=== PATIENT | male | born 1950 | race Caucasian/White ===

== ENCOUNTER → 2016-11-21 | Outpatient (CLI) | payer MEDICARE, OTHER ==
[~2016-11-21] MED LIST: AMLO5TAB2 PO; ASPI-482 PO; ESOM20CA PO; FEXO180T81 PO; METO50TA2 PO; NITR0.4T22 SL; SIMV40TA3 PO
--- NOTE | 2016-11-21 10:27 | PAIN ---
DATE OF SERVICE: 11/21/2016 INITIAL PAIN CLINIC CONSULTATION DATE OF SERVICE: 11/21/2016 CHIEF COMPLAINT: Low back and left lower extremity pain. HISTORY OF PRESENT ILLNESS: This is a 66-year-old male who presents with history of pain, low back and left leg for just over a year. The patient reports it occurred fairly suddenly and was not the result of any injury or action he is aware of, gradually increased over the last year or so with pain in the low back, across the low back, mostly on the left side radiating to left posterior gluteus, posterolateral thigh, lateral anterior thigh, posterior calf, posterior foot, anterior and lateral lower leg to the top of the foot as well as the lateral toes and the great toe. The patient reports a sharp shooting, can be aching, burning, cramping and stabbing as well as dull. The patient reports it is better with lying down, does not awaken him from sleep at night. Reports it does not affect his bowel or bladder control or his ability to walk, although he is limping to some extent. He is not using any assistive devices to ambulate. The patient reports it is worse when he is on his feet for more than about 30 minutes, but initially walking would actually decrease the pain. It is worse with sitting for prolonged period, especially riding in a car exacerbates the pain significantly. Again lying down can relieve it almost completely. The patient has had some chiropractic treatment, but no actual formal physical therapies or other modalities for the pain currently. The patient reports that the chiropractor did help to some extent and keeps the muscles loose and hence the low back and hips, but it comes back about 8-10 hours later after each treatment. The patient reports no loss of motor function, but significant fatigability with left lower extremity when he is ambulating over the right. The patient's disability rating from 0-10, 10 being the worst, is a 4 with family and home responsibilities and social activities, 6 with recreation and 0 in all other categories. PAST MEDICAL HISTORY: Significant for hypertension, hearing loss, skin cancers, cigarette smoking, quit 15 years ago, hypercholesterolemia, previous myocardial infarction and angioplasty, arthritis. PREVIOUS SURGERY: Include cataract extraction in 1999, hemorrhoidectomy 1997. CURRENT MEDICATIONS: Include nitroglycerin p.r.n., simvastatin, amlodipine, Yani, daily baby aspirin, Nexium, metoprolol. ALLERGIES: The patient has no known drug allergies. FAMILY HISTORY: Significant for heart disease and high blood pressure. SOCIAL HISTORY: The patient quit smoking many years ago. Does not drink alcohol. He is single. Lives on his own, has recently relocated from [facility] and is currently retired. REVIEW OF SYSTEMS: The patient's review of systems is positive for those items mentioned in history of present illness. All systems reviewed and otherwise negative. It is complete, full and well documented on the patient's chart. PHYSICAL EXAMINATION: VITAL SIGNS: The patient's blood pressure 139/58, pulse is 61, respirations 18, temperature 98.1 degrees Fahrenheit, height is 5 feet 7 inches, weighs 184 pounds. GENERAL: The patient is awake, alert, oriented, appropriate, very pleasant demeanor. HEENT: Head shows normocephalic, atraumatic. Extraocular movements are intact and symmetrical. Oral cavity shows mucous membranes moist and pink. Dentition is intact. NECK: Shows anterior throat supple without palpable lymphadenopathy noted. Swallow reflex is symmetrical. CHEST: Shows normal on inspection. Breath sounds are clear to auscultation bilaterally. HEART: Shows S1 and S2 clear. No murmurs auscultated. ABDOMEN: Soft, nontender, nondistended. No palpable organomegaly is noted. No rebound or guarding demonstrated. BACK: The patient's back shows spine grossly midline, normal-appearing cervical lordotic curvature, thoracic kyphotic curvature, and lumbar lordotic curvature. No previous bruises, lesions, rashes or scars are noted. Lumbar paraspinous musculature shows symmetrical with inspection, the lumbar distribution, on palpation shows some moderate tenderness, more on the left than the right in the low lumbar distribution, but symmetrical without evidence of atrophy or hypertrophy. Right side is only very mildly tender with deep palpation. No tenderness over the spinous processes. No tenderness over the sacrum or sacroiliac regions. The patient shows full rotational motion of lumbar spine, both laterally greater than 10 degrees right and left as well as extension greater than 10 degrees, forward flexion at 45 degrees without significant pain reported. LOWER EXTREMITIES: Showed deep tendon reflexes at 2+ in the patellar, 1+ tendo-calcaneus tendons are equal. Motor exam is strong with 5/5 dorsiflexion, extension, quadriceps and hamstring flexion and symmetrical as well. The patient's peripheral pulses are 1+ posterior tibial and dorsalis pedis pulses. No peripheral edema is noted. No clubbing, no cyanosis. Lower extremities are warm and dry to touch, equal in color and appearance. Straight leg raise noted to be positive on the left at about 40 degrees, which is decreased with knee flexion, but not completely relieved with pain in the lateral posterior calf and thigh on the left side. Right side is negative. Gaenslen's and Jesús's maneuvers are negative bilaterally as well. The patient is able to stand, stand on his toes without significant difficulty or loss of balance. He is able to walk with a normal appearing gait for short distance in the office, seems to favor the left lower extremity slightly, with a slight limp in his walk, but only very minimal. No assistive device canes or walkers required to ambulate. IMPRESSION: 1. This is a 66-year-old male with just over 1 year history of low back and left lower extremity pain in a radicular fashion. 2. Plain films of lumbar spine showing severe lumbar spondylosis at L5-S1 with advanced degenerative disk disease and disk space narrowing. 3. Hypertension. 4. Hearing loss. 5. Hypercholesterolemia. PLAN: Options were discussed with the patient including conservative medical management, physical therapy, interventional techniques and he is interested in interventional techniques. However, he does have an MRI already scheduled for 11/24/2016 and he would like to have this done first prior to committing to any interventional techniques. We discussed a lumbar epidural steroid injection using description as well as anatomical models to describe the procedure and the patient would like to see the MRI scan results first as this is already scheduled. We will wait until these are available and have the patient return once the MRI scan is read and we will discuss options at that time. The patient was encouraged to maintain exercise and stretching as well as walking activity and will return as scheduled. YUMIKO CANELA MD DR: ISAIAH/carl JOB#: [id number] / [id number]
== END | disposition home or self-care (01) ==
LOC: PNCL 07:42
PROVIDERS: ATTEND Anesthesiology
DX: M47.896 Other spondylosis, lumbar region (principal); M51.37 Other intervertebral disc degeneration, lumbosacral region; I10 Essential (primary) hypertension; E78.00 Pure hypercholesterolemia, unspecified; Z85.828 Personal history of other malignant neoplasm of skin; Z87.891 Personal history of nicotine dependence
CPT/HCPCS: G0463

== ENCOUNTER → 2016-11-24 | Outpatient (CLI) | payer MEDICARE, OTHER ==
--- NOTE | 2016-11-24 14:55 | KCIC ---
MR of the sacrum HISTORY: Low back pain extending into the left leg for one year. TECHNIQUE: Routine multiplanar sequences are obtained through the sacrum. FINDINGS: No evidence of bone lesion or acute fracture. No acute bone marrow edema. The neural foramina are patent. No abnormal soft tissue signal around the sacrum. The sacroiliac joints are intact bilaterally. Degenerative spondylosis at the partially visualized lower spine, and disc herniation at the lumbosacral junction, is partially seen, and will be fully evaluated on the separate MR lumbar spine performed today which will be interpreted on a separate report. Incidentally noted is diverticulosis of the visualized colon. IMPRESSION: 1. No acute abnormality identified at the sacrum or sacroiliac joints. 2. Disc herniation at the lumbosacral junction, referred to the separate MRI lumbar spine exam for that report. Electronically signed by: Angelo Maravilla MD (11/24/2016 2:51 PM) [id number]
--- NOTE | 2016-11-24 15:22 | KCIC ---
MRI of the lumbar spine without contrast 11/24/2016 CLINICAL HISTORY: Low back pain which radiates down the left leg for one year. TECHNIQUE: Unenhanced T1-weighted and T2-weighted sagittal and axial and inversion recovery sagittal images of the lumbar spine were obtained. FINDINGS: Mild S-shaped curvature of the thoracolumbar spine is seen. Degenerative signal changes are seen involving all of the disks of the lower thoracic and throughout the lumbar spine. Degenerative signal changes are seen within the marrow surrounding these discs. Loss of height of the L3-4 and L5-S1 discs is noted. An old appearing compression deformity of the superior endplate of the T11 vertebral body is seen. This vertebral body has lost approximately 30 percent of its normal height, centrally. No retropulsion of bone fragments into the central spinal canal is seen. There is no MRI evidence of an acute compression fracture involving the lumbar vertebrae. The conus medullaris is normal morphology, position, and signal characteristics. A rounded structure is seen projecting laterally and inferiorly from the lower pole of the right kidney. This demonstrates increased signal intensity on the T1-weighted images and decreased signal intensity on the T2-weighted images. This likely represents a hemorrhagic cyst. A 2.2 cm rounded high signal intensity lesion is seen involving the superior pole of the left kidney on the T2-weighted images. This likely represents a simple cyst. At the L1-2 and L2-3 disc spaces there are minimal to mild generalized disc bulges. Degenerative changes are seen involving the facet joints bilaterally. These findings do not result in significant central spinal canal or neural foraminal stenosis. At the L3-4 disc space there is a mild generalized disc bulge. Superimposed on this disc bulge is a right paracentral focal disc protrusion. This measures 2.5 mm in AP diameter. Degenerative changes are seen involving the facet joints bilaterally. There is mild ligamentum flavum hypertrophy bilaterally. These findings when combined do not result in significant central spinal canal or neural foraminal stenosis. At the L4-5 disc space there is a mild to moderate generalized disc bulge. This is eccentric to the right. Degenerative changes are seen involving the facet joints bilaterally. There is mild ligamentum flavum hypertrophy bilaterally. These findings when combined do not result in significant central spinal canal stenosis. Mild right neural foraminal stenosis is seen. The left neural foramen is patent. At the L5-S1 disc space there is a mild to moderate generalized disc bulge. This is eccentric to the left. Superimposed on this disc bulge is a central/right paracentral focal disc herniation. This measures 5 mm in AP diameter. Degenerative changes are seen involving the facet joints, left greater than right. There is mild ligamentum flavum hypertrophy bilaterally. These findings result in mild right greater than left central spinal canal stenosis. Moderate to severe left neural foraminal stenosis is seen. IMPRESSION: The changes of degenerative disc disease are seen involving the lumbar spine. These findings result in mild right greater than left central spinal canal stenosis at L5-S1. Mild right neural foraminal stenosis is seen at L4-5. Moderate to severe left neural foraminal stenosis is seen at L5-S1. Electronically signed by: Ziyad Najera MD (11/24/2016 3:18 PM) [facility]
== END | disposition home or self-care (01) ==
LOC: KCIC MRI 12:56
PROVIDERS: ATTEND Family Medicine
DX: M47.897 Other spondylosis, lumbosacral region (principal); M51.26 Other intervertebral disc displacement, lumbar region; K57.90 Diverticulosis of intestine, part unspecified, without perforation or abscess without bleeding; M48.061 Spinal stenosis, lumbar region without neurogenic claudication; M51.36 Other intervertebral disc degeneration, lumbar region
CPT/HCPCS: 72148; 72195

== ENCOUNTER → 2016-11-27 | Outpatient (CLI) | payer MEDICARE, OTHER ==
[~2016-11-27] MED LIST changes: +IOHEXOL 180 MG/ML 10 ML VIAL. ONE; +methylPREDNISolone ACETATE 40 MG/ML VIAL. ONE; +methylPREDNISolone ACETATE 80 MG/ML VIAL. ONE
--- NOTE | 2016-11-27 19:11 | PAIN ---
DATE OF SERVICE: 11/27/2016 DIAGNOSES: Lumbar radiculopathy with lumbar degenerative disk disease. HISTORY OF PRESENT ILLNESS: The patient is a 66-year-old male who returns for followup after initial evaluation and MRI scan results which he has now and we reviewed these with the patient showing L5-S1 disk space with [id number] generalized disk bulge eccentric to the left superimposed with his right paracentral disk herniation with [id number] left neural foraminal stenosis. The patient is still having symptoms in the low back and left leg as it was previously posterior gluteus, posterior thigh, posterior calf into the foot with an aching, sharp and dull sensation with pain at its worst is an 8 on a scale of 10, average about 3 and a 3 on a scale of 10 today. The patient reports no new motor or sensory deficits, no new bowel or bladder incontinence or other complaints. We did try some Medrol with him over the past 6 days and he had some hands tingling, but the pain was decreased significantly about 70%. The patient reports no new motor or sensory deficits, no new bowel or bladder incontinence or other complaints. The patient reports he is sleeping well through the night, does not awaken him from sleep. PHYSICAL EXAMINATION: VITAL SIGNS: The patient's blood pressure is 122/69, pulse 58, respirations 16, temperature 97.4 degrees Fahrenheit. Weight is 181 pounds. GENERAL: The patient is awake, alert, oriented, appropriate, very pleasant demeanor. HEENT: Head shows normocephalic, atraumatic. Extraocular movements are intact, symmetrical. Oral cavity, mucous membranes are moist and pink. Dentition is intact. NECK: Shows anterior throat supple. CHEST: Shows breath sounds clear to auscultation bilaterally. HEART: Shows S1 and S2 clear. ABDOMEN: Soft, nontender, nondistended. BACK: Shows spine grossly in midline. Lumbar paraspinous musculature shows normal appearing lumbar lordotic curvature. Lumbar paraspinous muscles are diffusely tender to palpation, but symmetrical on inspection. The patient shows good rotation of motion both laterally as well as extension and flexion without difficulty. EXTREMITIES: Lower extremities showed deep tendon reflexes 2+ in the patellar, 1+ in tendo calcaneus tendons. Motor exam is strong with 5/5 dorsiflexion, extension, quadriceps and hamstring flexion. Options were discussed with the patient. The patient's old chart was reviewed as his current medication regimen updated. Current review of systems is updated today as well and we will proceed with a lumbar epidural steroid injection today with fluoroscopic guidance. Risks were again discussed including, but not limited to bleeding, infection, possibility of epidural hematoma, subsequent neurological compromise, dural puncture, headaches, spinal cord and/or nerve damage, side effects of steroid medication and poor results regarding pain control. The patient understands and wishes to proceed. The patient will return to clinic in approximately 2 weeks for followup, was counseled on return appointment, activity level and side effects to be aware of. DIAGNOSIS: Lumbar radiculopathy with lumbar degenerative disease. PROCEDURE: Lumbar epidural steroid injection in translaminar approach at the level L5-S1 level using C-arm fluoroscopic guidance under sterile prep and drape using local anesthetic. Medication injected a total of 120 mg Depo-Medrol plus 10 mL preservative-free normal saline and 2 mL of Isovue for contrast. CONDITION AT DISCHARGE: Stable. The patient tolerated procedure well, had no complications. YUMIKO CANELA MD DR: ISAIAH/carl JOB#: [id number] / [id number]
== END | disposition home or self-care (01) ==
LOC: PNCL 12:58
PROVIDERS: ATTEND Anesthesiology
DX: M51.16 Intervertebral disc disorders with radiculopathy, lumbar region (principal); Z79.899 Other long term (current) drug therapy
CPT/HCPCS: 62323; J1030; J1040

== ENCOUNTER 2018-04-08 16:52 | Inpatient (IN) | payer MEDICARE, OTHER ==
[2018-04-08] VITALS (12 sets, daily range): BP systolic 115–133; BP diastolic 67–86
[~2018-04-08] VITALS: Ht 170.2 cm; Wt 82.6 kg
[~2018-04-08 16:52] MED LIST changes: +AMLO5TAB10 PO; -AMLO5TAB2 PO; -IOHEXOL 180 MG/ML 10 ML VIAL. ONE; -METO50TA2 PO; +METO50TA6 PO; -methylPREDNISolone ACETATE 40 MG/ML VIAL. ONE; -methylPREDNISolone ACETATE 80 MG/ML VIAL. ONE
[2018-04-08] MEDS ORDERED: HEPARIN for IV BOLUS 10,000 UNIT/10 ML VIAL. ONE ×2 (17:08→17:34)
[2018-04-08 17:14] LABS: BASO % 0 % (0-3); EOS % 0 % (0-3); HEMATOCRIT 39.9 % (39.0-53.0); HEMOGLOBIN 12.9 g/dL (13.0-17.5); LYMPH # 1.3 x10^3/uL (1.0-4.8); LYMPH % 10 % (24-48); MEAN CORPUSCULAR HEMOGLOBIN 30 pg (25-35); MEAN CORPUSCULAR HGB CONC 32 g/dL (31-37); MEAN CORPUSCULAR VOLUME 92 fL (79-100); MONO # 0.4 x10^3/uL (0.0-1.1); MONO % 3 % (0-9); NEUT # 10.6 x10^3uL (1.8-7.7); NEUT % 86 % (31-73); PLATELET COUNT 192 x10^3/uL (140-400); RED BLOOD COUNT 4.34 x10^6/uL (4.30-5.70); RED CELL DISTRIBUTION WIDTH 14.4 % (11.5-14.5); WHITE BLOOD COUNT 12.3 x10^3/uL (4.0-11.0)
[2018-04-08] MEDS ORDERED: HEPARIN for IV BOLUS 10,000 UNIT/10 ML VIAL. IV ONE ×3 (17:15→18:30)
[2018-04-08] MEDS ORDERED: ASPIRIN CHEWABLE 81 MG TABLET. PO ONE (17:15)
[2018-04-08] MEDS ORDERED: NITROGLYCERIN SUBLINGUAL 0.4 MG BOTTLE OF 25. SL PRN ×2 (17:15→23:30)
[2018-04-08] MEDS ORDERED: MORPHINE SULFATE 2 MG/ML VIAL. IV PRN (17:15)
[2018-04-08] MEDS ORDERED: IV NORMAL SALINE 500ML BAG 500 ML IV ONE (17:15)
--- NOTE | 2018-04-08 17:19 | PDOC1 ---
History and Physical Date of Admission Date of Admission DATE: 04/08/18 TIME: 17:18 Identification/Chief Complaint Chief Complaint cc chest pain uPon awakening this am, troponin i high to general labor to pressure in the epigastric that radiates into the chest and neck. history of angioplasty without stenting in the past. He reports that his pain subsided sometime this afternoon and then again restarted about an hour to 2 hours ago. Currently the pain is moderate. Past Medical History Cardiovascular: CAD Pulmonary: No pertinent hx Hepatobiliary: No pertinent hx Dermatology: No pertinent hx Past Surgical History Past Surgical History: Appendectomy, No pertinent history Social History Smoke: No ALCOHOL: rare Drugs: None Current Medications Current Medications Current Medications Aspirin (Children'S Aspirin) 324 mg 1X ONCE PO Last administered on 04/08/18at 17:11; Start 04/08/18 at 17:15; Stop 04/08/18 at 17:16; Status DC Nitroglycerin (Nitrostat) 0.4 mg PRN Q5MIN PRN SL CHEST PAIN; Start 04/08/18 at 17:15 Morphine Sulfate (Morphine Sulfate) 2 mg PRN Q1HR PRN IV SEVERE PAIN; Start at 17:15 Heparin Sodium (Porcine) (Heparin Sodium) 10,000 unit STK-MED ONCE .ROUTE ; Start 04/08/18 at 17:08; Stop 04/08/18 at 17:09; Status DC Sodium Chloride 500 ml @ 500 mls/hr 1X ONCE IV ; Start 04/08/18 at 17:15; Stop 04/08/18 at 18:14 Heparin Sodium (Porcine) (Heparin Sodium) 4,000 unit 1X ONCE IV ; Start at 17:15; Stop 04/08/18 at 17:16; Status DC Heparin Sodium (Porcine) (Heparin Sodium) 4,000 unit 1X ONCE IV ; Start at 17:15; Stop 04/08/18 at 17:16; Status UNV Active Scripts Active Reported NITROGLYCERIN SubLingual (Nitroglycerin) 0.4 Mg Tab.subl 1 Tab SL UD Simvastatin 40 Mg Tablet 1 Tab PO QHS Amlodipine Besylate 5 Mg Tablet 5 Mg PO DAILY Metoprolol Tartrate 50 Mg Tablet 1 Tab PO BID Nexium Capsule (Esomeprazole Magnesium) 20 Mg Capsule.dr 1 Cap PO DAILY Aspir 81 (Aspirin) 81 Mg Tablet.dr 1 Tab PO DAILY Yani Allergy (Fexofenadine Hcl) 180 Mg Tablet 1 Tab PO DAILY Allergies Allergies: Coded Allergies: No Known Drug Allergies (Unverified , 11/21/16) ROS Review of System 14 pt ros otherwise neg General: No: Chills, Night Sweats, Fatigue, Malaise, Appetite, Other PSYCHOLOGICAL ROS: No: Anxiety, Behavioral Disorder, Concentration difficultie , Decreased libido, Depression, Disorientation, Hallucinations, Hostility, Irritablity, Memory difficulties, Mood Swings, Obsessive thoughts, Physical abuse, Sexual abuse, Sleep disturbances, Suicidal ideation, Other Eyes: No Blurry vision, No Decreased vision, No Double vision, No Dry eyes, No Excessive tearing, No Eye Pain, No Itchy Eyes, No Loss of vision, No Photophobia , No Scotomata, No Uses contacts, No Uses glasses, No Other HEENT: No: Heacaches, Visual Changes, Hearing change, Nasal congestion, Nasal discharge, Oral lesions, Sinus pain, Sore Throat, Epistaxis, Sneezing, Snoring, Tinnitus, Vertigo, Vocal changes, Other ALLERGY AND IMMUNOLOGY: No: Hives, Insect Bite Sensitivity, Itchy/Watery Eyes, Nasal Congestion, Post Nasal Drip, Seasonal Allergies, Other Hematological and Lymphatic: No: Bleeding Problems, Blood Clots, Blood Transfusions, Brusing, Night Sweats, Pallor, Swollen Lymph Nodes, Other ENDOCRINE: No: Breast Changes, Galactorrhea, Hair Pattern Changes, Hot Flashes , Malaise/lethargy, Mood Swings, Palpitations, Polydipsia/polyuria, Skin Changes , Temperature Intolerance, Unexpected Weight Changes, Other Cardiovascular: yes Chest Pain; No Palpitations, No Orthopnea, No Paroxysmal Noc. Dyspnea, No Edema, No Lt Headedness, No Other Gastrointestinal: No Nausea, No Vomiting, No Abdominal Pain, No Diarrhea, No Constipation, No Melena, No Hematochezia, No Other Genitourinary: No Dysuria, No Frequency, No Incontinence, No Hematuria, No Retention, No Discharge, No Urgency, No Pain, No Flank Pain, No Other, No , No , No , No , No , No , No Musculoskeletal: No Gait Disturbance, No Joint Pain, No Joint Stiffness, No Joint Swelling, No Muscle Pain, No Muscular Weakness, No Pain In:, No Swelling In:, No Other Neurological: No Behavorial Changes, No Bowel/Bladder ControlChng, No Confusion , No Dizziness, No Gait Disturbance, No Headaches, No Impaired Coord/balance, No Memory Loss, No Numbness/Tingling, No Seizures, No Speech Problems, No Tremors, No Visual Changes, No Weakness, No Other Skin: No Dry Skin, No Eczema, No Hair Changes, No Lumps, No Mole Changes, No Mottling, No Nail Changes, No Pruritus, No Rash, No Skin Lesion Changes, No Other, No Acne Physical Exam Physical Exam Constitutional: Well developed, well nourished, no acute distress, non-toxic appearance. HENT: Normocephalic, atraumatic, bilateral external ears normal, oropharynx moist, no oral exudates, nose normal. [] Eyes: PERRLA, EOMI, conjunctiva normal, no discharge. Neck: Normal range of motion, no tenderness, supple, no stridor. Cardiovascular:Heart rate regular rhythm, no murmur [] Lungs & Thorax: Bilateral breath sounds clear to auscultation Abdomen: Bowel sounds normal, soft, no tenderness, no masses, no pulsatile masses. [] Skin: Warm, dry, no erythema, no rash. Back: No tenderness, no CVA tenderness. [] Extremities: No tenderness, no cyanosis, no clubbing, ROM intact, no edema. [] Neurologic: Alert and oriented X 3, normal motor function, normal sensory function, no focal deficits noted. [] Psychologic: Affect normal, judgement normal, mood normal. [] General: Alert, Oriented X3, Cooperative, mild distress HEENT: Atraumatic, PERRLA, EOMI, Mucous membr. moist/pink Lungs: Clear to auscultation, Normal air movement Heart: S1S2 Abdomen: Normal bowel sounds, Soft Rectal Exam: not examined Neuro: Normal speech, Strength at 5/5 X4 ext, Cranial nerves 3-12 NL Psych/Mental Status: Mental status NL, Mood NL Labs Labs Laboratory Tests Test 04/08/18 17:03 White Blood Count 12.3 x10^3/uL (4.0-11.0) Red Blood Count 4.34 x10^6/uL (4.30-5.70) Hemoglobin 12.9 g/dL (13.0-17.5) Hematocrit 39.9 % (39.0-53.0) Mean Corpuscular Volume 92 fL (79-100) Mean Corpuscular Hemoglobin 30 pg (25-35) Mean Corpuscular Hemoglobin Concent 32 g/dL (31-37) Red Cell Distribution Width 14.4 % (11.5-14.5) Platelet Count 192 x10^3/uL (140-400) Neutrophils (%) (Auto) 86 % (31-73) Lymphocytes (%) (Auto) 10 % (24-48) Monocytes (%) (Auto) 3 % (0-9) Eosinophils (%) (Auto) 0 % (0-3) Basophils (%) (Auto) 0 % (0-3) Neutrophils # (Auto) 10.6 x10^3uL (1.8-7.7) Lymphocytes # (Auto) 1.3 x10^3/uL (1.0-4.8) Monocytes # (Auto) 0.4 x10^3/uL (0.0-1.1) Eosinophils # (Auto) 0.0 x10^3/uL (0.0-0.7) Basophils # (Auto) 0.0 x10^3/uL (0.0-0.2) Laboratory Tests Test 04/08/18 17:03 White Blood Count 12.3 x10^3/uL (4.0-11.0) Red Blood Count 4.34 x10^6/uL (4.30-5.70) Hemoglobin 12.9 g/dL (13.0-17.5) Hematocrit 39.9 % (39.0-53.0) Mean Corpuscular Volume 92 fL (79-100) Mean Corpuscular Hemoglobin 30 pg (25-35) Mean Corpuscular Hemoglobin Concent 32 g/dL (31-37) Red Cell Distribution Width 14.4 % (11.5-14.5) Platelet Count 192 x10^3/uL (140-400) Neutrophils (%) (Auto) 86 % (31-73) Lymphocytes (%) (Auto) 10 % (24-48) Monocytes (%) (Auto) 3 % (0-9) Eosinophils (%) (Auto) 0 % (0-3) Basophils (%) (Auto) 0 % (0-3) Neutrophils # (Auto) 10.6 x10^3uL (1.8-7.7) Lymphocytes # (Auto) 1.3 x10^3/uL (1.0-4.8) Monocytes # (Auto) 0.4 x10^3/uL (0.0-1.1) Eosinophils # (Auto) 0.0 x10^3/uL (0.0-0.7) Basophils # (Auto) 0.0 x10^3/uL (0.0-0.2) VTE Prophylaxis Ordered VTE Prophylaxis Devices: Yes VTE Pharmacological Prophylaxi: Yes Assessment/Plan Assessment/Plan impression 1. acute STEMI 2. HX CAD PLAN STAT CARDIIOLOGY CONSULT CATH RCA STENT TONIGHT 36 MIN CC TIME SANDRA HILL MD Apr 08, 2018 17:18
--- NOTE | 2018-04-08 17:20 | PHYS DOC ---
Past Medical History Additional Past Medical Histor: history of coronary artery disease, hyperlipidemia history of chronic kidne Past Medical History ckd Past Surgical History Hemorrhoid surgery and left ear surgery. Additional Information: former smoker Alcohol Use: None Drug Use: None Adult General Chief Complaint Chief Complaint: CHEST PAIN HPI HPI 68-year-old male presenting the emergency room today with chest pain this started earlier today. He describes as a pressure in the epigastric that radiates into the chest and neck. He has a history of angioplasty without stenting in the past. He reports that his pain subsided sometime this afternoon and then again restarted about an hour to 2 hours ago. Currently the pain is moderate. He denies sweatiness of the skin or vomiting. Review of systems is negative for abdominal pain fevers or chills. He denies headache or neck stiffness. All other review of systems is negative unless otherwise noted in history of present illness. ED course: 68-year-old male presenting with chest pain. EKG obtained shows STEMI. Code STEMI called immediately on visualization of the EKG. Aspirin and nitroglycerin morphine and heparin ordered. Spoke with Dr. Gaines. Patient will go to [facility]. Blood work sent and chest x-ray ordered. EKG reviewed by myself shows sinus rhythm with a regular rate. ST segments show deviation in leads II, III, and F aVF. Patient does meet STEMI criteria. Reciprocal changes seen in lead 1 and aVL. Inferior STEMI. Troponin is positive. BUN and creatinine are elevated. We will admit the patient to the ICU after [facility]. Dr. Cope accepts patient for admission. Review of Systems Review of Systems SEE ABOVE. Current Medications Current Medications Current Medications Medications (Trade) Dose Ordered Sig/Emerald Start Time Stop Time Status Last Admin Dose Admin Aspirin (Children'S Aspirin) 324 mg 1X ONCE 04/08/18 17:15 04/08/18 17:16 DC 04/08/18 17:11 324 MG Heparin Sodium (Porcine) (Heparin Sodium) 4,000 unit 1X ONCE 04/08/18 17:15 04/08/18 17:18 DC Morphine Sulfate (Morphine Sulfate) 2 mg PRN Q1HR PRN 04/08/18 17:15 Nitroglycerin (Nitrostat) 0.4 mg PRN Q5MIN PRN 04/08/18 17:15 Sodium Chloride 500 ml @ 500 mls/hr 1X ONCE 04/08/18 17:15 2/28/19 18:14 DC 04/08/18 17:15 500 MLS/HR Allergies Allergies Allergies Coded Allergies Type Severity Reaction Last Updated Verified No Known Drug Allergies 11/21/16 No Physical Exam Physical Exam SEE ABOVE Constitutional: Well developed, well nourished, no acute distress, non-toxic appearance. HENT: Normocephalic, atraumatic, bilateral external ears normal, oropharynx moist, no oral exudates, nose normal. [] Eyes: PERRLA, EOMI, conjunctiva normal, no discharge. Neck: Normal range of motion, no tenderness, supple, no stridor. Cardiovascular:Heart rate regular rhythm, no murmur [] Lungs & Thorax: Bilateral breath sounds clear to auscultation Abdomen: Bowel sounds normal, soft, no tenderness, no masses, no pulsatile masses. [] Skin: Warm, dry, no erythema, no rash. Back: No tenderness, no CVA tenderness. [] Extremities: No tenderness, no cyanosis, no clubbing, ROM intact, no edema. [] Neurologic: Alert and oriented X 3, normal motor function, normal sensory function, no focal deficits noted. [] Psychologic: Affect normal, judgement normal, mood normal. [] Current Patient Data Vital Signs Vital Signs Date Time Temp Pulse Resp B/P (MAP) Pulse Ox O2 Delivery O2 Flow Rate FiO2 04/08/18 17:13 74 17 155/90 (111) 99 Room Air 04/08/18 17:03 97.5 97.5 Lab Values Laboratory Tests Test 04/08/18 17:03 White Blood Count 12.3 x10^3/uL (4.0-11.0) H Red Blood Count 4.34 x10^6/uL (4.30-5.70) Hemoglobin 12.9 g/dL (13.0-17.5) L Hematocrit 39.9 % (39.0-53.0) Mean Corpuscular Volume 92 fL (79-100) Mean Corpuscular Hemoglobin 30 pg (25-35) Mean Corpuscular Hemoglobin Concent 32 g/dL (31-37) Red Cell Distribution Width 14.4 % (11.5-14.5) Platelet Count 192 x10^3/uL (140-400) Neutrophils (%) (Auto) 86 % (31-73) H Lymphocytes (%) (Auto) 10 % (24-48) L Monocytes (%) (Auto) 3 % (0-9) Eosinophils (%) (Auto) 0 % (0-3) Basophils (%) (Auto) 0 % (0-3) Neutrophils # (Auto) 10.6 x10^3uL (1.8-7.7) H Lymphocytes # (Auto) 1.3 x10^3/uL (1.0-4.8) Monocytes # (Auto) 0.4 x10^3/uL (0.0-1.1) Eosinophils # (Auto) 0.0 x10^3/uL (0.0-0.7) Basophils # (Auto) 0.0 x10^3/uL (0.0-0.2) Segmented Neutrophils % 90 % (35-66) H Lymphocytes % 9 % (24-48) L Monocytes % 1 % (0-10) Platelet Estimate Adequate (ADEQUATE) Schistocytes Occ RBC Morphology Bizarre Forms Occ Prothrombin Time 14.5 SEC (11.7-14.0) H Prothrombin Time INR 1.2 (0.8-1.1) H PTT 30 SEC (24-38) Sodium Level 142 mmol/L (136-145) Potassium Level 4.2 mmol/L (3.5-5.1) Chloride Level 106 mmol/L (98-107) Carbon Dioxide Level 17 mmol/L (21-32) L Anion Gap 19 (6-14) H Blood Urea Nitrogen 39 mg/dL (8-26) H Creatinine 2.1 mg/dL (0.7-1.3) H Estimated GFR (Cockcroft-Gault) 31.5 Glucose Level 143 mg/dL (70-99) H Calcium Level 9.7 mg/dL (8.5-10.1) Total Bilirubin 0.4 mg/dL (0.2-1.0) Direct Bilirubin 0.1 mg/dL (0.0-0.2) Aspartate Amino Transferase (AST) 32 U/L (15-37) Alanine Aminotransferase (ALT) 21 U/L (16-63) Alkaline Phosphatase 91 U/L (46-116) Troponin I Quantitative 5.895 ng/mL (0.000-0.055) RZ-Pfk-Q-Type Natriuretic Peptide 630 pg/mL (0-124) H Total Protein 7.9 g/dL (6.4-8.2) Albumin 3.7 g/dL (3.4-5.0) Lipase 130 U/L (73-393) Laboratory Tests 04/08/18 17:03 Laboratory Tests 04/08/18 17:03 EKG EKG [] Radiology/Procedures Radiology/Procedures [] Course & Med Decision Making Course & Med Decision Making Pertinent Labs and Imaging studies reviewed. (See chart for details) [] Dragon Disclaimer Dragon Disclaimer This electronic medical record was generated, in whole or in part, using a voice recognition dictation system. Departure Departure Impression: Primary Impression: STEMI (ST elevation myocardial infarction) Disposition: ADMITTED INPATIENT Admitting Physician: Robin Solo Condition: STABLE Referrals: HENRRY CROWELL MD (PCP) Critical Care Time Critical care time spent was 40 minutes exclusive of procedures. Time was spent evaluating the patient, ordering the administration of medications, reevaluating the patient, discussing with the admitting provider and documenting. KAYLA GRAY MD Apr 08, 2018 17:20
[2018-04-08 17:23] LABS: CALCIUM 9.7 mg/dL (8.5-10.1); CREATININE 2.1 mg/dL (0.7-1.3); GFR 31.5; POTASSIUM 4.2 mmol/L (3.5-5.1)
[2018-04-08 17:25] LABS: PROTHROMBIN TIME PATIENT 14.5 SEC (11.7-14.0)
[2018-04-08 17:31] LABS: ALBUMIN 3.7 g/dL (3.4-5.0); DIRECT BILIRUBIN 0.1 mg/dL (0.0-0.2); TOTAL BILIRUBIN 0.4 mg/dL (0.2-1.0); TOTAL PROTEIN 7.9 g/dL (6.4-8.2)
[2018-04-08] MEDS ORDERED: fentaNYL PF VIAL 100 MCG/2 ML VIAL ONE (17:33)
[2018-04-08] MEDS ORDERED: IODIXANOL 320 MG/ML 100 ML VIAL. ONE (17:33)
[2018-04-08] MEDS ORDERED: MIDAZOLAM HCL/PF 2 MG/2 ML VIAL. ONE (17:34)
[2018-04-08] MEDS ORDERED: NITROGLYCERIN 200 MCG/2 ML SYRINGE FOR CATH/VASC LAB. ONE (17:34)
[2018-04-08] MEDS ORDERED: VERAPAMIL 5 MG/2 ML VIAL. ONE (17:34)
[2018-04-08] MEDS ORDERED: LIDOCAINE 1% Multi-Dose 20 ML VIAL. ONE (17:34)
[2018-04-08] MEDS ORDERED: HEPARIN for ARTERIAL LINE 1,500 ML ONE (17:34)
[2018-04-08 17:50] LABS: % LYMPHS 9 % (24-48); % MONOS 1 % (0-10); % SEGS 90 % (35-66); BIZZARE CELLS OCC; PLT ESTIMATE ADEQUATE (ADEQUATE); SCHISTOCYTES OCC
[2018-04-08] MEDS ORDERED: TIROFIBAN 5MG -0.9% NS 100 ML IV ONE (17:58)
[2018-04-08] MEDS ORDERED: TIROFIBAN 5MG -0.9% NS 100 ML IV PRN (18:15)
[2018-04-08] MEDS ORDERED: CONTRAST GIVEN. MC PRN (18:15)
[2018-04-08] MEDS ORDERED: IODIXANOL 320 MG/ML 100 ML VIAL. IART ONE (18:15)
[2018-04-08] MEDS ORDERED: LIDOCAINE 1% Multi-Dose 20 ML VIAL. INJ ONE (18:15)
[2018-04-08] MEDS ORDERED: HEPARIN for IV BOLUS 10,000 UNIT/10 ML VIAL. IART ONE (18:15)
[2018-04-08] MEDS ORDERED: NITROGLYCERIN 200 MCG/2 ML SYRINGE FOR CATH/VASC LAB. IART ONE (18:15)
[2018-04-08] MEDS ORDERED: fentaNYL PF VIAL 100 MCG/2 ML VIAL IV ONE (18:15)
[2018-04-08] MEDS ORDERED: MIDAZOLAM HCL/PF 2 MG/2 ML VIAL. IV ONE (18:15)
[2018-04-08] MEDS ORDERED: VERAPAMIL 5 MG/2 ML VIAL. IART ONE (18:15)
[2018-04-08] MEDS ORDERED: ATROPINE 0.5 MG/5 ML DISP.SYRINGE. ONE (18:16)
--- NOTE | 2018-04-08 18:18 | CONS ---
DATE OF CONSULTATION: 04/08/2018 REASON FOR CONSULTATION: STEMI. HISTORY OF PRESENT ILLNESS: The patient is a pleasant 68-year-old male with past medical history as noted below, presented with 4-6 hours of stuttering chest pain over the last day or so. This evening, he had some persistent midsternal chest pain that was heavy in nature with radiation to his left arm and subsequently sought attention in our ER. Upon arrival to the ER, he had blood pressure of 154/92. Initial EKG revealed inferior ST elevations and the STEMI team was activated. Upon talking to the patient today, he reports that since arrival to the ER, his chest pain has resolved, but due to his laboratory abnormalities and abnormal EKG, decision was made to take the patient emergently to the chemical laboratory scientist. The patient reports remote history of PCI to the right coronary artery and does not recall if he had a stent placed over the last 2 years, he has not seen a physiologist. PAST MEDICAL HISTORY: 1. Dyslipidemia. 2. Coronary artery disease. 3. Hypertension. ALLERGIES: No known drug allergies. FAMILY HISTORY: No significant early coronary artery disease. CURRENT CARDIAC MEDICATIONS: 1. Simvastatin 40 mg daily. 2. Metoprolol 50 mg b.i.d. 3. Amlodipine 5 mg daily. 4. Aspirin 81 mg daily. REVIEW OF SYSTEMS: Negative for 10 out of 14 systems reviewed, unless otherwise mentioned above in HPI. PHYSICAL EXAMINATION: VITAL SIGNS: Stable. HEAD AND NECK: Unremarkable. HEART: Regular rate and rhythm without any murmurs, rubs or gallops. LUNGS: Clear to auscultation bilaterally anteriorly. ABDOMEN: Soft, nontender, nondistended: EXTREMITIES: 2+ radial and dorsalis pedis pulses. NEUROLOGIC: No focal deficits. MUSCULOSKELETAL: No trauma. PSYCHIATRIC: Normal mood and affect. DIAGNOSTIC STUDIES: EKG with inferior ST elevation approximately 1-2 mm. Hemoglobin at 12.9. Troponin elevated to 5.5. Creatinine elevated to 2.1. The patient does have known chronic kidney disease. IMPRESSION: 1. Inferior ST elevation myocardial infarction and unstable angina. 2. Hypertension. 3. Chronic kidney disease, likely stage 3 or 4. 4. Prior coronary artery disease, status post percutaneous coronary intervention. RECOMMENDATIONS: I had a long discussion with the patient regarding risks and benefits of urgent cardiac catheterization in light of his history of chronic kidney disease, but with acute inferior ST elevations and he wishes to proceed with emergent cardiac catheterization. Final recommendations forthcoming after cardiac catheterization. JOAQUIM JONES MD DR: FARZAD/carl JOB#: [id number] / [id number]
[2018-04-08] MEDS ORDERED: PRASUGREL 10 MG TABLET. ONE (18:31)
[2018-04-08] MEDS ORDERED: PRASUGREL 10 MG TABLET. PO ONE (18:45)
[2018-04-08] MEDS ORDERED: ALBUTEROL SULFATE 2.5 MG/3 ML NEBU. NEB PRN (19:00)
[2018-04-08] MEDS ORDERED: ACETAMINOPHEN 650 MG/20.3 ML SOLUTION. GT PRN (19:00)
[2018-04-08] MEDS ORDERED: ACETAMINOPHEN 325 MG TABLET. PO PRN ×2 (19:00→23:30)
[2018-04-08] MEDS ORDERED: ZOLPIDEM 5 MG TABLET. PO PRN (19:00)
[2018-04-08] MEDS ORDERED: LORazepam 0.5 MG TABLET PO PRN (19:00)
[2018-04-08] MEDS ORDERED: guaiFENesin ORAL 200 MG/10 ML LIQUID. PO PRN (19:00)
[2018-04-08] MEDS ORDERED: 0.9 % SODIUM CHLORIDE 3ML DISP.SYRIN. IV PRN (19:00)
[2018-04-08] MEDS ORDERED: SODIUM PHOSPHATES 19/7GM 133 ML ENEMA. PR PRN (19:00)
[2018-04-08] MEDS ORDERED: MAG HYDROX/ALUMINUM HYD/SIMETH 30 ML ORAL.SUSP PO PRN (19:00)
[2018-04-08] MEDS ORDERED: DOCUSATE SODIUM 100 MG CAPSULE. PO PRN (19:00)
[2018-04-08] MEDS ORDERED: cloNIDine HCL 0.1 MG TABLET PO PRN (19:00)
[2018-04-08] MEDS ORDERED: ONDANSETRON PF 4 MG/2 ML VIAL. IV PRN (19:00)
--- NOTE | 2018-04-08 19:29 | CARD ---
MR#: [id number] Date of Study: 04/08/2018 Ordering Physician: JOAQUIM JONES, Referring Physician: SANDRA HILL Tech: RT Smitha (R) APPROVED REPORT Technologist: RT Smitha (R) Nurse: Zina Irving RN Procedure(s) performed: Moderate sedation: 40 minutes LHC, Coronary angiography IVUS of the RCA PCI of the RCA HISTORY The patient is a 68 year-old male with a history of : coronary artery disease, hypertension, dyslipid emia. INDICATION The indication(s) include : STEMI (>0 to less than or equal to 6 hours), Inferior 2 mm STEMI. [facility] Clinical Frailty Scale [facility] Clinical Frailty Scale: Managing Well Heart Failure Heart Failure: Yes If Yes, Newly Diagnosed: Yes If Yes, NYHA Class: Class III PROCEDURE NARRATIVE INFORMED CONSENT: After explaining the risks and benefits of the procedure and alternatives, informed consent was obtained. The patient was brought emergently to the cardiac catheterization lab. A timeout was performed confi rming the patient's name, date of , procedure, and site of procedure. All necessary personnel w ere wearing the appropriate protective equipment and radiation monitor devices. (See nursing notes for medications administered). ACCESS: The right wrist was sterilely prepped and draped in the usual fashion. The right wrist was infiltrat ed with 1 mL of 2% lidocaine for subcutaneous anesthesia. A 6 Ivorian Terumo glide sheath was inserte d into the right radial artery without difficulty. CORONARY ANGIOGRAPHY: Right and left coronary angiography was performed using a 6Fr TIG 4.0 catheter and a JL 3.5 catheter . Left ventricular end diastolic pressure was obtained with a JL 3.5 catheter. All catheter exchang es and advancements were performed over a guidewire. FINDINGS: HEMODYNAMICS: LVEDP 15 mm Hg No gradient on LV to aortic pullback. AO: 100/50 LEFT VENTRICULOGRAM: Deferred due to CKD CORONARY ANGIOGRAPHY: LM is a large caliber vessel with normal angiographic appearance. LAD is a moderate caliber vessel with mid 20% stenosis. D1 is a small to moderate sized vessel with an ostial 50% stenosis. LCx is a moderate to large caliber non-dominant vessel with a mid 40% stenosis. OM1 is a moderate caliber vessel with mild luminal irregularities. RCA is a large caliber dominant vessel with mid 60% stenosis followed by a distal 90% stenosis. RPDA is a small caliber vessel with mild diffuse irregularities of up to 40%. INTERVENTIONAL TECHNIQUE: Heparin and Tirofiban were used for anticoagulation. Through a 6Fr JR4 catheter, a 0.014'' Prowater w dimple was advanced to the distal RPDA. Angioplasty of the distal RCA lesion was performed with a Trek 2 .5/12 mm balloon and the lesion was stented with a 3.0/15 mm RYANN after initial confirmation of vessel size with IVUS guidance. Final angiography revealed ANSELMO 3 flow and 0% residual disease. 100 ml of t otal contrast used. CLOSURE: At case completion the right radial sheath was removed and a Terumo radial band was applied with 13 m l of air. COMPLICATIONS: The patient tolerated the procedure well and there were no immediate complications. Conclusion 1. Inferior aborted STEMI 2. Successful PCI of the RCA with implantation of a 3.0/15 mm RYANN. Recommendations ASA 81mg daily Prasugrel 10mg daily High dose statin therapy Cardiac rehab referral Check echo in a.m. Signed by : Joaquim Jones, Electronically Approved : 04/08/2018 19:28:41
--- NOTE | 2018-04-08 20:28 | RAD ---
Indication:Post left heart cath TECHNIQUE:Portable AP chest X-ray COMPARISON:None FINDINGS: Heart is normal in size. Lungs are clear. No pneumothorax or pleural effusion. Moderate-sized sliding hiatal hernia. Visualized bony thorax within normal limits. IMPRESSION: No acute pulmonary process. Moderate sliding hiatal hernia. Electronically signed by: Asad Villagran DO (04/08/2018 8:25 PM) [facility]
[2018-04-08] MEDS: ATORVASTATIN CALCIUM 20 MG TABLET PO SCH (23:30)
[2018-04-08] MEDS ORDERED: fentaNYL PF VIAL 100 MCG/2 ML VIAL IV PRN (23:30)
[2018-04-08] MEDS ORDERED: ATROPINE 0.5 MG/5 ML DISP.SYRINGE. IV PRN (23:30)
[2018-04-08] MEDS ORDERED: AMIODARONE 150 MG in IV DEXTROSE 5% 100ML 100 ML IV PRN (23:30)
[2018-04-08] MEDS ORDERED: LIDOCAINE 2% 100 MG/5 ML SYRINGE. IV PRN (23:30)
[2018-04-08] MEDS ORDERED: 0.9 % SODIUM CHLORIDE 10 ML DISP.SYRIN. IV PRN (23:30)
[2018-04-09] VITALS (7 sets, daily range): BP systolic 114–129; BP diastolic 74–80
[2018-04-09 04:18] LABS: CALCIUM 9.1 mg/dL (8.5-10.1); CREATININE 1.8 mg/dL (0.7-1.3); GFR 37.6; POTASSIUM 3.9 mmol/L (3.5-5.1)
[2018-04-09 07:26] LABS: HEMOGLOBIN ISTAT 13.6 g/dL (14-18); ION CA ISTAT 1.25 mmol/L (1.13-1.32); POTASSIUM ISTAT 4.1 mmol/L (3.5-5.0)
[2018-04-09] MEDS: PRASUGREL 10 MG TABLET. PO SCH (08:29)
[2018-04-09] MEDS: ASPIRIN ENTERIC COATED 81 MG TABLET.DR. PO SCH (08:29)
[2018-04-09] MEDS: ENOXAPARIN 40 MG/0.4 ML SYRINGE. SQ SCH (08:29)
--- NOTE | 2018-04-09 10:44 | EKG ---
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
--- NOTE | 2018-04-09 10:44 | NUR ---
SS following for discharge planning. SS reviewed pt chart. Pt is from home and currently on room air. No discharge needs noted at this time. SS will continue to follow for pending discharge needs.
--- NOTE | 2018-04-09 12:03 | PDOC ---
PENG PEREZ FO[employer] SERVICE ASSOCIATE 04/09/18 1203: CARDIO Progress Notes Date and Time Date of Service 04/09/2018 Time of Evaluation 1030 Subjective Subjective: No Chest Pain, No shortness of breath, No Palpitations Vitals Vitals Vital Signs Date Time Temp Pulse Resp B/P (MAP) Pulse Ox O2 Delivery O2 Flow Rate FiO2 04/09/18 09:04 97 Room Air 04/09/18 08:00 98.3 73 16 123/77 (92) 98.3 04/08/18 19:30 2.0 Weight Weight [ ] Input and Output Intake and Output Intake and Output 04/09/18 07:00 Intake Total 1120 ml Output Total 1300 ml Balance -180 ml Intake Oral 1120 ml Output Urine Total 1300 ml Laboratory Labs Laboratory Tests Test 04/08/18 17:03 04/08/18 17:06 04/08/18 17:07 04/09/18 03:30 White Blood Count 12.3 x10^3/uL (4.0-11.0) Red Blood Count 4.34 x10^6/uL (4.30-5.70) Hemoglobin 12.9 g/dL (13.0-17.5) Hematocrit 39.9 % (39.0-53.0) Mean Corpuscular Volume 92 fL (79-100) Mean Corpuscular Hemoglobin 30 pg (25-35) Mean Corpuscular Hemoglobin Concent 32 g/dL (31-37) Red Cell Distribution Width 14.4 % (11.5-14.5) Platelet Count 192 x10^3/uL (140-400) Neutrophils (%) (Auto) 86 % (31-73) Lymphocytes (%) (Auto) 10 % (24-48) Monocytes (%) (Auto) 3 % (0-9) Eosinophils (%) (Auto) 0 % (0-3) Basophils (%) (Auto) 0 % (0-3) Neutrophils # (Auto) 10.6 x10^3uL (1.8-7.7) Lymphocytes # (Auto) 1.3 x10^3/uL (1.0-4.8) Monocytes # (Auto) 0.4 x10^3/uL (0.0-1.1) Eosinophils # (Auto) 0.0 x10^3/uL (0.0-0.7) Basophils # (Auto) 0.0 x10^3/uL (0.0-0.2) Segmented Neutrophils % 90 % (35-66) Lymphocytes % 9 % (24-48) Monocytes % 1 % (0-10) Platelet Estimate Adequate (ADEQUATE) Schistocytes Occ RBC Morphology Bizarre Forms Occ Prothrombin Time 14.5 SEC (11.7-14.0) Prothromb Time International Ratio 1.2 (0.8-1.1) Activated Partial Thromboplast Time 30 SEC (24-38) Sodium Level 142 mmol/L (136-145) 142 mmol/L (136-145) Potassium Level 4.2 mmol/L (3.5-5.1) 3.9 mmol/L (3.5-5.1) Chloride Level 106 mmol/L (98-107) 108 mmol/L (98-107) Carbon Dioxide Level 17 mmol/L (21-32) 19 mmol/L (21-32) Anion Gap 19 (6-14) 19 mmol/L (6-14) 15 (6-14) Blood Urea Nitrogen 39 mg/dL (8-26) 32 mg/dL (8-26) Creatinine 2.1 mg/dL (0.7-1.3) 1.8 mg/dL (0.7-1.3) Estimated GFR (Cockcroft-Gault) 31.5 37.6 Glucose Level 143 mg/dL (70-99) 144 mg/dL (70-99) 84 mg/dL (70-99) Calcium Level 9.7 mg/dL (8.5-10.1) 9.1 mg/dL (8.5-10.1) Total Bilirubin 0.4 mg/dL (0.2-1.0) Direct Bilirubin 0.1 mg/dL (0.0-0.2) Aspartate Amino Transf (AST/SGOT) 32 U/L (15-37) Alanine Aminotransferase (ALT/SGPT) 21 U/L (16-63) Alkaline Phosphatase 91 U/L (46-116) Troponin I Quantitative 5.895 ng/mL (0.000-0.055) 18.178 ng/mL (0.000-0.055) XE-Vtr-L-Type Natriuretic Peptide 630 pg/mL (0-124) Total Protein 7.9 g/dL (6.4-8.2) Albumin 3.7 g/dL (3.4-5.0) Lipase 130 U/L (73-393) Bedside Troponin I 3.45 ng/ml (<0.08) Bedside Hemoglobin 13.6 g/dL (14-18) Bedside Hematocrit 40 % (37-52) Bedside Sodium 141 mmol/L (135-145) Bedside Potassium 4.1 mmol/L (3.5-5.0) Bedside Chloride 111 mmol/L (98-110) Bedside Total CO2 15 mmol/L (23-32) Bedside Blood Urea Nitrogen 34 mg/dL (8-26) Bedside Creatinine 2.0 mg/dL (0.5-1.4) Bedside Ionized Calcium (Chago) 1.25 mmol/L (1.13-1.32) Triglycerides Level 87 mg/dL (0-150) Cholesterol Level 110 mg/dL (0-200) LDL Cholesterol, Calculated 56 mg/dL (0-100) VLDL Cholesterol, Calculated 17 mg/dL (0-40) Non-HDL Cholesterol Calculated 73 mg/dL (0-129) HDL Cholesterol 37 mg/dL (40-60) Cholesterol/HDL Ratio 3.0 Physical Exam HEENT: Neck Supple W Full Motion Chest: Symmetric LUNGS: Clear to Auscultation Heart: S1S2, RRR (SR) Abdomen: Soft N/T Extremities: No Edema, No Calf Tenderness Neurology: alert, oriented, follow commands Assessment Assessment 1. Inferior aborted STEMI: S/P PCI/RYANN to RCA 2. Hx of CAD: prior PTCA 3. Controlled 4. CKD3-4 RECOMMENDATIONS 1. Restart on home metoprolol. ASA/effient/lipitor 2. Await TTE. Encouraged cardiac rehab. Repeat troponin 3. anticipate DC tomorrow. 4. Follow up in office in 4 weeks. 5. Will reeval ACEi/ARB as an outpt given his renal insufficiency and recent contrast exposure. JOAQUIM JONES MD 04/09/18 9323: CARDIO Progress Notes Plan Plan Patient seen and examined. Agree with above nurse practitioner note. Spoke with the patient's family at his request and updated his daughter. Continue aspirin, prasugrel and statin therapy BP on low side, will monitor and likely restart home meds including metoprolol and amlodipine in next 24 hours. Ok to DC tomorrow and close f/u in the office. thanks. PENG PEREZ APRN Apr 09, 2018 12:03 JOAQUIM JONES MD Apr 09, 2018 18:23
--- NOTE | 2018-04-09 12:24 | PDOC ---
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 S/p heart cath with stent placement in RCA. Today the pt was seen and examined in his room. He is alert, awake and in NAD. He has no new complaints. He is feeling good. I discussed the pt with his RN and his son. Vitals Vitals Vital Signs Date Time Temp Pulse Resp B/P (MAP) Pulse Ox O2 Delivery O2 Flow Rate FiO2 04/09/18 09:04 97 Room Air 04/09/18 08:00 98.3 73 16 123/77 (92) 98.3 04/08/18 19:30 2.0 Physical Exam General: Alert, Oriented X3, Cooperative, mild distress Heart: Regular rate, No murmurs Lungs: Clear, Other (no wheezing or crackles) Abdomen: Normal bowel sounds, Soft Extremities: No clubbing, No cyanosis, Other (bruising of rt arm from cath) Skin: No rashes, No significant lesion Labs LABS Laboratory Tests Test 04/08/18 17:03 04/08/18 17:06 04/08/18 17:07 04/09/18 03:30 White Blood Count 12.3 x10^3/uL (4.0-11.0) Red Blood Count 4.34 x10^6/uL (4.30-5.70) Hemoglobin 12.9 g/dL (13.0-17.5) Hematocrit 39.9 % (39.0-53.0) Mean Corpuscular Volume 92 fL (79-100) Mean Corpuscular Hemoglobin 30 pg (25-35) Mean Corpuscular Hemoglobin Concent 32 g/dL (31-37) Red Cell Distribution Width 14.4 % (11.5-14.5) Platelet Count 192 x10^3/uL (140-400) Neutrophils (%) (Auto) 86 % (31-73) Lymphocytes (%) (Auto) 10 % (24-48) Monocytes (%) (Auto) 3 % (0-9) Eosinophils (%) (Auto) 0 % (0-3) Basophils (%) (Auto) 0 % (0-3) Neutrophils # (Auto) 10.6 x10^3uL (1.8-7.7) Lymphocytes # (Auto) 1.3 x10^3/uL (1.0-4.8) Monocytes # (Auto) 0.4 x10^3/uL (0.0-1.1) Eosinophils # (Auto) 0.0 x10^3/uL (0.0-0.7) Basophils # (Auto) 0.0 x10^3/uL (0.0-0.2) Segmented Neutrophils % 90 % (35-66) Lymphocytes % 9 % (24-48) Monocytes % 1 % (0-10) Platelet Estimate Adequate (ADEQUATE) Schistocytes Occ RBC Morphology Bizarre Forms Occ Prothrombin Time 14.5 SEC (11.7-14.0) Prothromb Time International Ratio 1.2 (0.8-1.1) Activated Partial Thromboplast Time 30 SEC (24-38) Sodium Level 142 mmol/L (136-145) 142 mmol/L (136-145) Potassium Level 4.2 mmol/L (3.5-5.1) 3.9 mmol/L (3.5-5.1) Chloride Level 106 mmol/L (98-107) 108 mmol/L (98-107) Carbon Dioxide Level 17 mmol/L (21-32) 19 mmol/L (21-32) Anion Gap 19 (6-14) 19 mmol/L (6-14) 15 (6-14) Blood Urea Nitrogen 39 mg/dL (8-26) 32 mg/dL (8-26) Creatinine 2.1 mg/dL (0.7-1.3) 1.8 mg/dL (0.7-1.3) Estimated GFR (Cockcroft-Gault) 31.5 37.6 Glucose Level 143 mg/dL (70-99) 144 mg/dL (70-99) 84 mg/dL (70-99) Calcium Level 9.7 mg/dL (8.5-10.1) 9.1 mg/dL (8.5-10.1) Total Bilirubin 0.4 mg/dL (0.2-1.0) Direct Bilirubin 0.1 mg/dL (0.0-0.2) Aspartate Amino Transf (AST/SGOT) 32 U/L (15-37) Alanine Aminotransferase (ALT/SGPT) 21 U/L (16-63) Alkaline Phosphatase 91 U/L (46-116) Troponin I Quantitative 5.895 ng/mL (0.000-0.055) 18.178 ng/mL (0.000-0.055) CY-Puo-G-Type Natriuretic Peptide 630 pg/mL (0-124) Total Protein 7.9 g/dL (6.4-8.2) Albumin 3.7 g/dL (3.4-5.0) Lipase 130 U/L (73-393) Bedside Troponin I 3.45 ng/ml (<0.08) Bedside Hemoglobin 13.6 g/dL (14-18) Bedside Hematocrit 40 % (37-52) Bedside Sodium 141 mmol/L (135-145) Bedside Potassium 4.1 mmol/L (3.5-5.0) Bedside Chloride 111 mmol/L (98-110) Bedside Total CO2 15 mmol/L (23-32) Bedside Blood Urea Nitrogen 34 mg/dL (8-26) Bedside Creatinine 2.0 mg/dL (0.5-1.4) Bedside Ionized Calcium (Chago) 1.25 mmol/L (1.13-1.32) Triglycerides Level 87 mg/dL (0-150) Cholesterol Level 110 mg/dL (0-200) LDL Cholesterol, Calculated 56 mg/dL (0-100) VLDL Cholesterol, Calculated 17 mg/dL (0-40) Non-HDL Cholesterol Calculated 73 mg/dL (0-129) HDL Cholesterol 37 mg/dL (40-60) Cholesterol/HDL Ratio 3.0 Review of Systems Review of Systems Gen: denies fever, chills Heart: denies current CP, palp Lung: denies cough, SOA Abd: denies N/V/D Assessment and Plan Assessmemt and Plan Assessment: CC: CP, elevated troponin - 5.895 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 Labs Laboratory Tests Test 04/08/18 17:03 04/08/18 17:06 04/08/18 17:07 04/09/18 03:30 White Blood Count 12.3 x10^3/uL (4.0-11.0) Red Blood Count 4.34 x10^6/uL (4.30-5.70) Hemoglobin 12.9 g/dL (13.0-17.5) Hematocrit 39.9 % (39.0-53.0) Mean Corpuscular Volume 92 fL (79-100) Mean Corpuscular Hemoglobin 30 pg (25-35) Mean Corpuscular Hemoglobin Concent 32 g/dL (31-37) Red Cell Distribution Width 14.4 % (11.5-14.5) Platelet Count 192 x10^3/uL (140-400) Neutrophils (%) (Auto) 86 % (31-73) Lymphocytes (%) (Auto) 10 % (24-48) Monocytes (%) (Auto) 3 % (0-9) Eosinophils (%) (Auto) 0 % (0-3) Basophils (%) (Auto) 0 % (0-3) Neutrophils # (Auto) 10.6 x10^3uL (1.8-7.7) Lymphocytes # (Auto) 1.3 x10^3/uL (1.0-4.8) Monocytes # (Auto) 0.4 x10^3/uL (0.0-1.1) Eosinophils # (Auto) 0.0 x10^3/uL (0.0-0.7) Basophils # (Auto) 0.0 x10^3/uL (0.0-0.2) Segmented Neutrophils % 90 % (35-66) Lymphocytes % 9 % (24-48) Monocytes % 1 % (0-10) Platelet Estimate Adequate (ADEQUATE) Schistocytes Occ RBC Morphology Bizarre Forms Occ Prothrombin Time 14.5 SEC (11.7-14.0) Prothromb Time International Ratio 1.2 (0.8-1.1) Activated Partial Thromboplast Time 30 SEC (24-38) Sodium Level 142 mmol/L (136-145) 142 mmol/L (136-145) Potassium Level 4.2 mmol/L (3.5-5.1) 3.9 mmol/L (3.5-5.1) Chloride Level 106 mmol/L (98-107) 108 mmol/L (98-107) Carbon Dioxide Level 17 mmol/L (21-32) 19 mmol/L (21-32) Anion Gap 19 (6-14) 19 mmol/L (6-14) 15 (6-14) Blood Urea Nitrogen 39 mg/dL (8-26) 32 mg/dL (8-26) Creatinine 2.1 mg/dL (0.7-1.3) 1.8 mg/dL (0.7-1.3) Estimated GFR (Cockcroft-Gault) 31.5 37.6 Glucose Level 143 mg/dL (70-99) 144 mg/dL (70-99) 84 mg/dL (70-99) Calcium Level 9.7 mg/dL (8.5-10.1) 9.1 mg/dL (8.5-10.1) Total Bilirubin 0.4 mg/dL (0.2-1.0) Direct Bilirubin 0.1 mg/dL (0.0-0.2) Aspartate Amino Transf (AST/SGOT) 32 U/L (15-37) Alanine Aminotransferase (ALT/SGPT) 21 U/L (16-63) Alkaline Phosphatase 91 U/L (46-116) Troponin I Quantitative 5.895 ng/mL (0.000-0.055) 18.178 ng/mL (0.000-0.055) JZ-Tar-A-Type Natriuretic Peptide 630 pg/mL (0-124) Total Protein 7.9 g/dL (6.4-8.2) Albumin 3.7 g/dL (3.4-5.0) Lipase 130 U/L (73-393) Bedside Troponin I 3.45 ng/ml (<0.08) Bedside Hemoglobin 13.6 g/dL (14-18) Bedside Hematocrit 40 % (37-52) Bedside Sodium 141 mmol/L (135-145) Bedside Potassium 4.1 mmol/L (3.5-5.0) Bedside Chloride 111 mmol/L (98-110) Bedside Total CO2 15 mmol/L (23-32) Bedside Blood Urea Nitrogen 34 mg/dL (8-26) Bedside Creatinine 2.0 mg/dL (0.5-1.4) Bedside Ionized Calcium (Chago) 1.25 mmol/L (1.13-1.32) Triglycerides Level 87 mg/dL (0-150) Cholesterol Level 110 mg/dL (0-200) LDL Cholesterol, Calculated 56 mg/dL (0-100) VLDL Cholesterol, Calculated 17 mg/dL (0-40) Non-HDL Cholesterol Calculated 73 mg/dL (0-129) HDL Cholesterol 37 mg/dL (40-60) Cholesterol/HDL Ratio 3.0 Laboratory Tests Test 04/08/18 17:03 04/08/18 17:06 04/08/18 17:07 04/09/18 03:30 White Blood Count 12.3 x10^3/uL (4.0-11.0) Red Blood Count 4.34 x10^6/uL (4.30-5.70) Hemoglobin 12.9 g/dL (13.0-17.5) Hematocrit 39.9 % (39.0-53.0) Mean Corpuscular Volume 92 fL (79-100) Mean Corpuscular Hemoglobin 30 pg (25-35) Mean Corpuscular Hemoglobin Concent 32 g/dL (31-37) Red Cell Distribution Width 14.4 % (11.5-14.5) Platelet Count 192 x10^3/uL (140-400) Neutrophils (%) (Auto) 86 % (31-73) Lymphocytes (%) (Auto) 10 % (24-48) Monocytes (%) (Auto) 3 % (0-9) Eosinophils (%) (Auto) 0 % (0-3) Basophils (%) (Auto) 0 % (0-3) Neutrophils # (Auto) 10.6 x10^3uL (1.8-7.7) Lymphocytes # (Auto) 1.3 x10^3/uL (1.0-4.8) Monocytes # (Auto) 0.4 x10^3/uL (0.0-1.1) Eosinophils # (Auto) 0.0 x10^3/uL (0.0-0.7) Basophils # (Auto) 0.0 x10^3/uL (0.0-0.2) Segmented Neutrophils % 90 % (35-66) Lymphocytes % 9 % (24-48) Monocytes % 1 % (0-10) Platelet Estimate Adequate (ADEQUATE) Schistocytes Occ RBC Morphology Bizarre Forms Occ Prothrombin Time 14.5 SEC (11.7-14.0) Prothromb Time International Ratio 1.2 (0.8-1.1) Activated Partial Thromboplast Time 30 SEC (24-38) Sodium Level 142 mmol/L (136-145) 142 mmol/L (136-145) Potassium Level 4.2 mmol/L (3.5-5.1) 3.9 mmol/L (3.5-5.1) Chloride Level 106 mmol/L (98-107) 108 mmol/L (98-107) Carbon Dioxide Level 17 mmol/L (21-32) 19 mmol/L (21-32) Anion Gap 19 (6-14) 19 mmol/L (6-14) 15 (6-14) Blood Urea Nitrogen 39 mg/dL (8-26) 32 mg/dL (8-26) Creatinine 2.1 mg/dL (0.7-1.3) 1.8 mg/dL (0.7-1.3) Estimated GFR (Cockcroft-Gault) 31.5 37.6 Glucose Level 143 mg/dL (70-99) 144 mg/dL (70-99) 84 mg/dL (70-99) Calcium Level 9.7 mg/dL (8.5-10.1) 9.1 mg/dL (8.5-10.1) Total Bilirubin 0.4 mg/dL (0.2-1.0) Direct Bilirubin 0.1 mg/dL (0.0-0.2) Aspartate Amino Transf (AST/SGOT) 32 U/L (15-37) Alanine Aminotransferase (ALT/SGPT) 21 U/L (16-63) Alkaline Phosphatase 91 U/L (46-116) Troponin I Quantitative 5.895 ng/mL (0.000-0.055) 18.178 ng/mL (0.000-0.055) HC-Kvv-V-Type Natriuretic Peptide 630 pg/mL (0-124) Total Protein 7.9 g/dL (6.4-8.2) Albumin 3.7 g/dL (3.4-5.0) Lipase 130 U/L (73-393) Bedside Troponin I 3.45 ng/ml (<0.08) Bedside Hemoglobin 13.6 g/dL (14-18) Bedside Hematocrit 40 % (37-52) Bedside Sodium 141 mmol/L (135-145) Bedside Potassium 4.1 mmol/L (3.5-5.0) Bedside Chloride 111 mmol/L (98-110) Bedside Total CO2 15 mmol/L (23-32) Bedside Blood Urea Nitrogen 34 mg/dL (8-26) Bedside Creatinine 2.0 mg/dL (0.5-1.4) Bedside Ionized Calcium (Chago) 1.25 mmol/L (1.13-1.32) Triglycerides Level 87 mg/dL (0-150) Cholesterol Level 110 mg/dL (0-200) LDL Cholesterol, Calculated 56 mg/dL (0-100) VLDL Cholesterol, Calculated 17 mg/dL (0-40) Non-HDL Cholesterol Calculated 73 mg/dL (0-129) HDL Cholesterol 37 mg/dL (40-60) Cholesterol/HDL Ratio 3.0 Medications Current Medications Aspirin (Children'S Aspirin) 324 mg 1X ONCE PO Last administered on 04/08/18at 17:11; Start 04/08/18 at 17:15; Stop 04/08/18 at 17:16; Status DC Nitroglycerin (Nitrostat) 0.4 mg PRN Q5MIN PRN SL CHEST PAIN; Start 04/08/18 at 17:15; Stop 04/08/18 at 23:32; Status DC Morphine Sulfate (Morphine Sulfate) 2 mg PRN Q1HR PRN IV SEVERE PAIN; Start at 17:15 Heparin Sodium (Porcine) (Heparin Sodium) 10,000 unit STK-MED ONCE .ROUTE ; Start 04/08/18 at 17:08; Stop 04/08/18 at 17:09; Status DC Sodium Chloride 500 ml @ 500 mls/hr 1X ONCE IV Last administered on at 17:15; Start 04/08/18 at 17:15; Stop 04/08/18 at 18:14; Status DC Heparin Sodium (Porcine) (Heparin Sodium) 4,000 unit 1X ONCE IV Last administered on 04/08/18at 17:18; Start 04/08/18 at 17:15; Stop 04/08/18 at 17:16 ; Status DC Heparin Sodium (Porcine) (Heparin Sodium) 4,000 unit 1X ONCE IV ; Start at 17:15; Stop 04/08/18 at 17:18; Status DC Iodixanol (Visipaque 320) 100 ml STK-MED ONCE .ROUTE ; Start 04/08/18 at 17:33; Stop 04/08/18 at 17:34; Status DC Fentanyl Citrate (Fentanyl 2ml Vial) 100 mcg STK-MED ONCE .ROUTE ; Start at 17:33; Stop 04/08/18 at 17:34; Status DC Midazolam HCl (Versed) 2 mg STK-MED ONCE .ROUTE ; Start 04/08/18 at 17:34; Stop 04/08/18 at 17:35; Status DC Heparin Sodium (Porcine) (Heparin Sodium) 10,000 unit STK-MED ONCE .ROUTE ; Start 04/08/18 at 17:34; Stop 04/08/18 at 17:35; Status DC Verapamil HCl (Verapamil) 5 mg STK-MED ONCE .ROUTE ; Start 04/08/18 at 17:34; Stop 04/08/18 at 17:35; Status DC Lidocaine HCl (Lidocaine 1% 20ml Vial) 20 ml STK-MED ONCE .ROUTE ; Start at 17:34; Stop 04/08/18 at 17:35; Status DC Heparin Sodium/ Sodium Chloride 1,500 ml @ As Directed STK-MED ONCE .ROUTE ; Start 04/08/18 at 17:34; Stop 04/08/18 at 17:35; Status DC Nitroglycerin (Nitroglycerin) 200 mcg STK-MED ONCE .ROUTE ; Start 04/08/18 at 17 :34; Stop 04/08/18 at 17:35; Status DC Tirofiban/Sodium Chloride 100 ml @ As Directed STK-MED ONCE IV ; Start at 17:58; Stop 04/08/18 at 17:59; Status DC Nitroglycerin (Nitroglycerin) 200 mcg 1X ONCE IART Last administered on at 18:15; Start 04/08/18 at 18:15; Stop 04/08/18 at 18:16; Status DC Verapamil HCl (Verapamil) 2.5 mg 1X ONCE IART Last administered on 04/08/18at 18:15; Start 04/08/18 at 18:15; Stop 04/08/18 at 18:16; Status DC Heparin Sodium (Porcine) (Heparin Sodium) 2,500 unit 1X ONCE IART Last administered on 04/08/18at 18:15; Start 04/08/18 at 18:15; Stop 04/08/18 at 18:16 ; Status DC Heparin Sodium/ Sodium Chloride (HEPARIN for ARTERIAL LINE FLUSH) 1,000 unit 1X ONCE IART Last administered on 04/08/18 18:15; Start 04/08/18 at 18:15; Stop 04/08/18 at 18:16; Status DC Heparin Sodium/ Sodium Chloride (HEPARIN for ARTERIAL LINE FLUSH) 1,000 unit 1X ONCE IART Last administered on 04/08/18 18:15; Start 04/08/18 at 18:15; Stop 04/08/18 at 18:16; Status DC Midazolam HCl (Versed) 2 mg 1X ONCE IV Last administered on 04/08/18 18:15; Start 04/08/18 at 18:15; Stop 04/08/18 at 18:16; Status DC Fentanyl Citrate (Fentanyl 2ml Vial) 100 mcg 1X ONCE IV Last administered on 18:15; Start 04/08/18 at 18:15; Stop 04/08/18 at 18:16; Status DC Iodixanol (Visipaque 320) 100 ml 1X ONCE IART Last administered on 04/08/18 18:15; Start 04/08/18 at 18:15; Stop 04/08/18 at 18:16; Status DC Lidocaine HCl (Lidocaine 1% 20ml Vial) 20 ml 1X ONCE INJ Last administered on 04/08/18 18:15; Start 04/08/18 at 18:15; Stop 04/08/18 at 18:16; Status DC Tirofiban/Sodium Chloride 100 ml @ 0 mls/hr CONT PRN IV PER PROTOCOL Last administered on 04/08/18at 18:23; Start 04/08/18 at 18:15; Stop 04/09/18 at 12:14 ; Status DC Info (CONTRAST GIVEN -- Rx MONITORING) 1 each PRN DAILY PRN MC SEE COMMENTS; Start 04/08/18 at 18:15; Stop 04/10/18 at 18:14 Atropine Sulfate (ATROPINE 0.5mg SYRINGE) 0.5 mg STK-MED ONCE .ROUTE ; Start at 18:16; Stop 04/08/18 at 18:17; Status DC Heparin Sodium (Porcine) (Heparin Sodium) 1,000 unit 1X ONCE IV Last administered on 04/08/18at 18:30; Start 04/08/18 at 18:30; Stop 04/08/18 at 18:31 ; Status DC Prasugrel (Effient) 10 mg STK-MED ONCE .ROUTE ; Start 04/08/18 at 18:31; Stop at 18:32; Status DC Prasugrel (Effient) 60 mg 1X ONCE PO Last administered on 04/08/18at 18:42; Start 04/08/18 at 18:45; Stop 04/08/18 at 18:46; Status DC Sodium Chloride (Normal Saline Flush 3ml) 3 ml QSHIFT PRN IV AFTER MEDS AND BLOOD DRAWS; Start 04/08/18 at 19:00; Stop 04/08/18 at 23:31; Status DC Ondansetron HCl (Zofran) 4 mg PRN Q4HRS PRN IV NAUSEA/VOMITING; Start 04/08/18 at 19:00 Zolpidem Tartrate (Ambien) 5 mg PRN QHS PRN PO INSOMNIA; Start 04/08/18 at 19: 00 Acetaminophen (Tylenol) 650 mg PRN Q4HRS PRN PO TEMP OVER 100.4F OR MILD PAIN; Start 04/08/18 at 19:00; Stop 04/08/18 at 23:31; Status DC Acetaminophen (Tylenol) 650 mg PRN Q4HRS PRN GT TEMP OVER 100.4F OR MILD PAIN; Start 04/08/18 at 19:00; Stop 04/08/18 at 23:31; Status DC Al Hydroxide/Mg Hydroxide (Mylanta Plus Xs) 30 ml PRN DAILY PRN PO HEARTBURN / GAS; Start 04/08/18 at 19:00 Clonidine HCl (Catapres) 0.1 mg PRN Q6HRS PRN PO SBP>160 OR DBP>90; Start 04/08 at 19:00 Sodium Monofluorophosphate (Fleet Adult) 133 ml PRN DAILY PRN MS CONSTIPATION; Start 04/08/18 at 19:00 Docusate Sodium (Colace) 100 mg PRN BID PRN PO CONSTIPATION; Start 04/08/18 at 19:00 Albuterol Sulfate (Ventolin Neb Soln) 2.5 mg PRN Q4HRS PRN NEB SHORTNESS OF BREATH; Start 04/08/18 at 19:00 Guaifenesin (Robitussin) 200 mg PRN Q4HRS PRN PO COUGH; Start 04/08/18 at 19:00 Lorazepam (Ativan) 0.5 mg PRN Q4HRS PRN PO ANXIETY / AGITATION; Start 04/08/18 at 19:00 Enoxaparin Sodium (Lovenox 40mg Syringe) 40 mg DAILY SQ Last administered on 04/09/18at 08:29; Start 04/09/18 at 09:00 Sodium Chloride (Normal Saline Flush) 3 ml QSHIFT PRN IV AFTER MEDS AND BLOOD DRAWS; Start 04/08/18 at 23:30 Aspirin (Ecotrin) 81 mg DAILYWBKFT PO Last administered on 04/09/18at 08:29; Start 04/09/18 at 08:00 Prasugrel (Effient) 10 mg DAILYWBKFT PO Last administered on 04/09/18at 08:29; Start 04/09/18 at 08:00 Atorvastatin Calcium (Lipitor) 40 mg QHS PO ; Start 04/08/18 at 23:30 Acetaminophen (Tylenol) 650 mg PRN Q6HRS PRN PO MILD PAIN / TEMP; Start at 23:30 Fentanyl Citrate (Fentanyl 2ml Vial) 50 mcg PRN Q1HR PRN IV MODERATE OR SEVERE PAIN; Start 04/08/18 at 23:30 Nitroglycerin (Nitrostat) 0.4 mg PRN Q5MIN PRN SL CHEST PAIN; Start 04/08/18 at 23:30 Amiodarone HCl 150 mg/Dextrose 103 ml @ 600 mls/hr 1X PRN PRN IV FOR VENTRICULAR TACHYCARDIA; Start 04/08/18 at 23:30 Lidocaine HCl (Lidocaine HCl 2% Abboject) 100 mg 1X PRN PRN IV FOR VENTRICULAR TACHYCARDIA; Start 04/08/18 at 23:30 Atropine Sulfate (ATROPINE 0.5mg SYRINGE) 0.5 mg PRN 1X PRN IV BRADYCARDIA; Start 04/08/18 at 23:30 Active Scripts Active Reported NITROGLYCERIN SubLingual (Nitroglycerin) 0.4 Mg Tab.subl 1 Tab SL UD Simvastatin 40 Mg Tablet 1 Tab PO QHS Amlodipine Besylate 5 Mg Tablet 5 Mg PO DAILY Metoprolol Tartrate 50 Mg Tablet 1 Tab PO BID Nexium Capsule (Esomeprazole Magnesium) 20 Mg Capsule. 1 Cap PO DAILY Aspir 81 (Aspirin) 81 Mg Tablet. 1 Tab PO DAILY Yani Allergy (Fexofenadine Hcl) 180 Mg Tablet 1 Tab PO DAILY Vitals/I & O Vital Sign - Last 24 Hours 04/08/18 04/08/18 04/08/18 04/08/18 17:03 17:13 17:23 17:33 Temp 97.5 97.5 Pulse 77 74 76 72 Resp 19 17 20 19 B/P (MAP) 154/82 (106) 155/90 (111) 140/81 (100) 140/80 (100) Pulse Ox 100 99 100 100 O2 Delivery Room Air Room Air Room Air Room Air 04/08/18 04/08/18 04/08/18 04/08/18 18:15 18:15 18:42 19:30 Pulse 97 62 69 Resp 18 20 Pulse Ox 97 100 O2 Delivery Nasal Cannula O2 Flow Rate 2.0 2.0 04/08/18 04/08/18 04/08/18 04/08/18 19:45 19:53 20:00 20:00 Pulse 64 67 64 Resp 18 B/P (MAP) 133/86 (102) Pulse Ox 95 O2 Delivery Room Air Room Air 04/08/18 04/08/18 04/08/18 04/08/18 20:13 20:15 20:30 20:45 Pulse 66 66 64 B/P (MAP) 129/80 (96) 128/81 (97) Pulse Ox 100 100 100 100 04/08/18 04/08/18 04/08/18 04/09/18 20:45 22:23 23:00 00:01 Temp 98.0 98.0 Pulse 64 67 64 66 B/P (MAP) 125/76 (92) 129/67 (87) Pulse Ox 100 100 O2 Delivery Room Air 04/09/18 04/09/18 04/09/18 04/09/18 00:09 01:00 01:52 02:00 Pulse 79 68 71 71 04/09/18 04/09/18 04/09/18 02:57 08:00 09:04 Temp 98.3 98.3 98.3 98.3 Pulse 72 73 Resp 18 16 B/P (MAP) 129/77 (94) 123/77 (92) Pulse Ox 98 99 97 O2 Delivery Room Air Room Air Room Air Intake and Output 04/08/18 04/08/18 04/09/18 15:00 23:00 07:00 Intake Total 570 ml 550 ml Output Total 600 ml 700 ml Balance -30 ml -150 ml QIAN HSU III DO Apr 09, 2018 12:24
--- NOTE | 2018-04-09 13:56 | NUR ---
Patient to have ECHO. Taken by wheelchair by transportation tech.
--- NOTE | 2018-04-09 14:30 | NUR ---
Patient back to room.
--- NOTE | 2018-04-09 15:23 | CARD ---
MR#: [id number] Date of Study: 04/09/2018 Ordering Physician: PENG PEREZ, Referring Physician: SANDRA HILL, Tech: Daksha Aguilar RDCS APPROVED REPORT EXAM: Two-dimensional and M-mode echocardiogram with Doppler and color Doppler. Other Information Quality : AverageHR: 70bpm Rhythm : NSR INDICATION STEMI 2D DIMENSIONS RVDd3.3 (2.9-3.5cm)Left Atrium(2D)4.0 (1.6-4.0cm) IVSd1.5 (0.7-1.1cm)Aortic Root(2D)3.2 (2.0-3.7cm) LVDd4.2 (3.9-5.9cm)LVOT Diameter2.2 (1.8-2.4cm) PWd1.1 (0.7-1.1cm)IVSs2.0 (0.8-1.2cm) LVDs2.6 (2.5-4.0cm)FS (%) 37.4 % PWs1.3 (0.8-1.2cm)SV53.8 ml LVEF(%)65.0 (>50%) Aortic Valve AoV Peak Rogelio.169.9cm/sAoV VTI28.6cm AO Peak GR.11.5mmHgLVOT Peak Rogelio.137.1cm/s LVOT VTI 27.26cmAO Mean GR.6mmHg WILFRED (VMAX)2.00ei2CJZ (VTI)2.40cm2 AI P 1/2 [id number] Mitral Valve MV E Fwgdlfhm78.8cm/sMV DECEL [id number] MV A Gfpslbsn81.1cm/sMV XNO84ix E/A Ratio0.9MVA (PHT)2.91cm2 TDI E/Medial E'7.6 Pulmonary Valve PV Peak Sxdmoyvu914.3cm/sPV Peak Grad.4mmHg Tricuspid Valve TR P. [id number]/sRAP [id number] TR Peak Gr.22ajCsXFYJ31slLg LEFT VENTRICLE The left ventricle is normal size. There is normal left ventricular wall thickness. The left ventricu lar systolic function is normal and the ejection fraction is within normal range. The Ejection Fracti on is 55-60%. There is normal LV segmental wall motion. Transmitral Doppler flow pattern is Grade I-a bnormal relaxation pattern. RIGHT VENTRICLE The right ventricle is normal size. There is normal right ventricular wall thickness. The right ventr icular systolic function is normal. ATRIA The left atrium size is normal. The right atrium size is normal. The interatrial septum is intact wit h no evidence for an atrial septal defect or patent foramen ovale as noted on 2-D or Doppler imaging. AORTIC VALVE The aortic valve is calcified but opens well. The aortic valve is trileaflet. Doppler and Color Flow revealed mild aortic regurgitation. There is no significant aortic valvular stenosis. MITRAL VALVE The mitral valve is normal in structure and function. There is no evidence of mitral valve prolapse. There is no mitral valve stenosis. Doppler and Color-flow revealed trace mitral regurgitation. TRICUSPID VALVE The tricuspid valve is normal in structure and function. Doppler and Color Flow revealed trace to mil d tricuspid regurgitation. The PA pressure was estimated at 40 mmHg. There is no tricuspid valve prol apse or vegetation. There is no tricuspid valve stenosis. PULMONIC VALVE The pulmonic valve is not well visualized. Doppler and Color Flow revealed mild to moderate pulmonic valvular regurgitation. There is no pulmonic valvular stenosis. GREAT VESSELS The aortic root is normal in size. The ascending aorta is normal in size. The IVC is normal in size a nd collapses >50% with inspiration. PERICARDIAL EFFUSION There is no evidence of significant pericardial effusion. Critical Notification Critical Value: No <Conclusion> The left ventricle is normal size. The left ventricular systolic function is normal and the ejection fraction is within normal range. The Ejection Fraction is 55-60%. There is no significant aortic valvular stenosis. Doppler and Color Flow revealed mild aortic regurgitation. Doppler and Color-flow revealed trace mitral regurgitation. Doppler and Color Flow revealed trace to mild tricuspid regurgitation. The PA pressure was estimated at 40 mmHg. Signed by : Clyde Crews MD Electronically Approved : 04/09/2018 15:22:48
--- NOTE | 2018-04-09 17:20 | NUR ---
Dr. Gaines here to see patient. Spoke with Daughter Светлана on the phone to inform about plan of care of patient.
--- NOTE | 2018-04-09 17:23 | NUR ---
Dr. Gaines to see patient and explained rationale for staying in the hospital being observed for another day. States understanding and agreeable with staying another night.
--- NOTE | 2018-04-09 19:17 | DS ---
DATE OF DISCHARGE: 04/09/2018 ADMISSION DIAGNOSIS: Acute myocardial infarction. DISCHARGE DIAGNOSIS: Status post cardiac catheterization with 1 new stent placed to the right coronary artery. CONSULTS: Cardiology. PROCEDURES: Cardiac catheterization. HOSPITAL COURSE: The patient is a pleasant middle-aged male, who presented with chest pain. He was noted to have elevations of his troponin and EKG changes. He was admitted. We consulted Cardiology. He was taken to the research laboratory manager. We successfully received a PCI of the right coronary artery with implantation of a 3.0/15-mm drug-eluting stent. Post-procedure, he has done well. I saw and examined this morning. His heart tones were normal. His lungs were clear. We plan to discharge if okay with Cardiology. DISPOSITION: Home. ACTIVITY: As tolerated. DIET: Low sodium. MEDICATIONS: Please see the MRAD. TOTAL TIME: 33 minutes. QIAN HSU DO DR: CYN/carl JOB#: [id number] / [id number]
[2018-04-09] MEDS: ATORVASTATIN CALCIUM 20 MG TABLET PO SCH (19:39)
[2018-04-10 04:52] LABS: CALCIUM 9.1 mg/dL (8.5-10.1); CREATININE 1.9 mg/dL (0.7-1.3); GFR 35.3; POTASSIUM 4.1 mmol/L (3.5-5.1)
[2018-04-10 04:58] LABS: BASO # 0.1 x10^3/uL (0.0-0.2); BASO % 1 % (0-3); EOS # 0.2 x10^3/uL (0.0-0.7); EOS % 3 % (0-3); HEMATOCRIT 37.7 % (39.0-53.0); HEMOGLOBIN 12.4 g/dL (13.0-17.5); LYMPH # 2.6 x10^3/uL (1.0-4.8); LYMPH % 30 % (24-48); MEAN CORPUSCULAR HEMOGLOBIN 30 pg (25-35); MEAN CORPUSCULAR HGB CONC 33 g/dL (31-37); MEAN CORPUSCULAR VOLUME 92 fL (79-100); MONO # 0.9 x10^3/uL (0.0-1.1); MONO % 10 % (0-9); NEUT # 4.8 x10^3uL (1.8-7.7); NEUT % 56 % (31-73); PLATELET COUNT 171 x10^3/uL (140-400); RED BLOOD COUNT 4.12 x10^6/uL (4.30-5.70); RED CELL DISTRIBUTION WIDTH 14.9 % (11.5-14.5); WHITE BLOOD COUNT 8.6 x10^3/uL (4.0-11.0)
[2018-04-10 07:15] VITALS: BP 122/74
[2018-04-10] MEDS: PRASUGREL 10 MG TABLET. PO SCH (08:31)
[2018-04-10] MEDS: ENOXAPARIN 40 MG/0.4 ML SYRINGE. SQ SCH (08:31)
[2018-04-10] MEDS: ASPIRIN ENTERIC COATED 81 MG TABLET.DR. PO SCH (08:32)
--- NOTE | 2018-04-10 08:45 | PDOC ---
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 S/p heart cath with stent placement in RCA. Today the pt was seen and examined in his room. awake, alert, cooperate, no acute distress. awaiting trending troponins prob discharge today; awaiting ok from cardiology Vitals Vitals Vital Signs Date Time Temp Pulse Resp B/P (MAP) Pulse Ox O2 Delivery O2 Flow Rate FiO2 04/10/18 07:58 Room Air 04/10/18 07:15 98.7 66 20 122/74 (90) 96 98.7 Physical Exam General: Alert, Oriented X3, Cooperative, mild distress Heart: Regular rate, No murmurs Lungs: Clear, Other (no wheezing or crackles) Abdomen: Normal bowel sounds, Soft Extremities: No clubbing, No cyanosis, Other (bruising of rt arm from cath) Skin: No rashes, No significant lesion Labs LABS Laboratory Tests Test 04/10/18 04:00 White Blood Count 8.6 x10^3/uL (4.0-11.0) Red Blood Count 4.12 x10^6/uL (4.30-5.70) Hemoglobin 12.4 g/dL (13.0-17.5) Hematocrit 37.7 % (39.0-53.0) Mean Corpuscular Volume 92 fL (79-100) Mean Corpuscular Hemoglobin 30 pg (25-35) Mean Corpuscular Hemoglobin Concent 33 g/dL (31-37) Red Cell Distribution Width 14.9 % (11.5-14.5) Platelet Count 171 x10^3/uL (140-400) Neutrophils (%) (Auto) 56 % (31-73) Lymphocytes (%) (Auto) 30 % (24-48) Monocytes (%) (Auto) 10 % (0-9) Eosinophils (%) (Auto) 3 % (0-3) Basophils (%) (Auto) 1 % (0-3) Neutrophils # (Auto) 4.8 x10^3uL (1.8-7.7) Lymphocytes # (Auto) 2.6 x10^3/uL (1.0-4.8) Monocytes # (Auto) 0.9 x10^3/uL (0.0-1.1) Eosinophils # (Auto) 0.2 x10^3/uL (0.0-0.7) Basophils # (Auto) 0.1 x10^3/uL (0.0-0.2) Sodium Level 142 mmol/L (136-145) Potassium Level 4.1 mmol/L (3.5-5.1) Chloride Level 110 mmol/L (98-107) Carbon Dioxide Level 20 mmol/L (21-32) Anion Gap 12 (6-14) Blood Urea Nitrogen 34 mg/dL (8-26) Creatinine 1.9 mg/dL (0.7-1.3) Estimated GFR (Cockcroft-Gault) 35.3 Glucose Level 91 mg/dL (70-99) Calcium Level 9.1 mg/dL (8.5-10.1) Review of Systems Review of Systems general: no acute distress, no fever, no rash cardiac: no arrhythmia, no chest pain, no murmur respiratory: no wheezing, no shortness of breath, no rales/rhonchi/crackles Assessment and Plan Assessmemt and Plan Assessment cc: chest pain with elevated troponin STEMI 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 Labs Laboratory Tests Test 04/08/18 17:03 04/08/18 17:06 04/08/18 17:07 04/09/18 03:30 White Blood Count 12.3 x10^3/uL (4.0-11.0) Red Blood Count 4.34 x10^6/uL (4.30-5.70) Hemoglobin 12.9 g/dL (13.0-17.5) Hematocrit 39.9 % (39.0-53.0) Mean Corpuscular Volume 92 fL (79-100) Mean Corpuscular Hemoglobin 30 pg (25-35) Mean Corpuscular Hemoglobin Concent 32 g/dL (31-37) Red Cell Distribution Width 14.4 % (11.5-14.5) Platelet Count 192 x10^3/uL (140-400) Neutrophils (%) (Auto) 86 % (31-73) Lymphocytes (%) (Auto) 10 % (24-48) Monocytes (%) (Auto) 3 % (0-9) Eosinophils (%) (Auto) 0 % (0-3) Basophils (%) (Auto) 0 % (0-3) Neutrophils # (Auto) 10.6 x10^3uL (1.8-7.7) Lymphocytes # (Auto) 1.3 x10^3/uL (1.0-4.8) Monocytes # (Auto) 0.4 x10^3/uL (0.0-1.1) Eosinophils # (Auto) 0.0 x10^3/uL (0.0-0.7) Basophils # (Auto) 0.0 x10^3/uL (0.0-0.2) Segmented Neutrophils % 90 % (35-66) Lymphocytes % 9 % (24-48) Monocytes % 1 % (0-10) Platelet Estimate Adequate (ADEQUATE) Schistocytes Occ RBC Morphology Bizarre Forms Occ Prothrombin Time 14.5 SEC (11.7-14.0) Prothromb Time International Ratio 1.2 (0.8-1.1) Activated Partial Thromboplast Time 30 SEC (24-38) Sodium Level 142 mmol/L (136-145) 142 mmol/L (136-145) Potassium Level 4.2 mmol/L (3.5-5.1) 3.9 mmol/L (3.5-5.1) Chloride Level 106 mmol/L (98-107) 108 mmol/L (98-107) Carbon Dioxide Level 17 mmol/L (21-32) 19 mmol/L (21-32) Anion Gap 19 (6-14) 19 mmol/L (6-14) 15 (6-14) Blood Urea Nitrogen 39 mg/dL (8-26) 32 mg/dL (8-26) Creatinine 2.1 mg/dL (0.7-1.3) 1.8 mg/dL (0.7-1.3) Estimated GFR (Cockcroft-Gault) 31.5 37.6 Glucose Level 143 mg/dL (70-99) 144 mg/dL (70-99) 84 mg/dL (70-99) Calcium Level 9.7 mg/dL (8.5-10.1) 9.1 mg/dL (8.5-10.1) Total Bilirubin 0.4 mg/dL (0.2-1.0) Direct Bilirubin 0.1 mg/dL (0.0-0.2) Aspartate Amino Transf (AST/SGOT) 32 U/L (15-37) Alanine Aminotransferase (ALT/SGPT) 21 U/L (16-63) Alkaline Phosphatase 91 U/L (46-116) Troponin I Quantitative 5.895 ng/mL (0.000-0.055) 18.178 ng/mL (0.000-0.055) ZT-Csc-L-Type Natriuretic Peptide 630 pg/mL (0-124) Total Protein 7.9 g/dL (6.4-8.2) Albumin 3.7 g/dL (3.4-5.0) Lipase 130 U/L (73-393) Bedside Troponin I 3.45 ng/ml (<0.08) Bedside Hemoglobin 13.6 g/dL (14-18) Bedside Hematocrit 40 % (37-52) Bedside Sodium 141 mmol/L (135-145) Bedside Potassium 4.1 mmol/L (3.5-5.0) Bedside Chloride 111 mmol/L (98-110) Bedside Total CO2 15 mmol/L (23-32) Bedside Blood Urea Nitrogen 34 mg/dL (8-26) Bedside Creatinine 2.0 mg/dL (0.5-1.4) Bedside Ionized Calcium (Chago) 1.25 mmol/L (1.13-1.32) Triglycerides Level 87 mg/dL (0-150) Cholesterol Level 110 mg/dL (0-200) LDL Cholesterol, Calculated 56 mg/dL (0-100) VLDL Cholesterol, Calculated 17 mg/dL (0-40) Non-HDL Cholesterol Calculated 73 mg/dL (0-129) HDL Cholesterol 37 mg/dL (40-60) Cholesterol/HDL Ratio 3.0 Test 04/10/18 04:00 White Blood Count 8.6 x10^3/uL (4.0-11.0) Red Blood Count 4.12 x10^6/uL (4.30-5.70) Hemoglobin 12.4 g/dL (13.0-17.5) Hematocrit 37.7 % (39.0-53.0) Mean Corpuscular Volume 92 fL (79-100) Mean Corpuscular Hemoglobin 30 pg (25-35) Mean Corpuscular Hemoglobin Concent 33 g/dL (31-37) Red Cell Distribution Width 14.9 % (11.5-14.5) Platelet Count 171 x10^3/uL (140-400) Neutrophils (%) (Auto) 56 % (31-73) Lymphocytes (%) (Auto) 30 % (24-48) Monocytes (%) (Auto) 10 % (0-9) Eosinophils (%) (Auto) 3 % (0-3) Basophils (%) (Auto) 1 % (0-3) Neutrophils # (Auto) 4.8 x10^3uL (1.8-7.7) Lymphocytes # (Auto) 2.6 x10^3/uL (1.0-4.8) Monocytes # (Auto) 0.9 x10^3/uL (0.0-1.1) Eosinophils # (Auto) 0.2 x10^3/uL (0.0-0.7) Basophils # (Auto) 0.1 x10^3/uL (0.0-0.2) Sodium Level 142 mmol/L (136-145) Potassium Level 4.1 mmol/L (3.5-5.1) Chloride Level 110 mmol/L (98-107) Carbon Dioxide Level 20 mmol/L (21-32) Anion Gap 12 (6-14) Blood Urea Nitrogen 34 mg/dL (8-26) Creatinine 1.9 mg/dL (0.7-1.3) Estimated GFR (Cockcroft-Gault) 35.3 Glucose Level 91 mg/dL (70-99) Calcium Level 9.1 mg/dL (8.5-10.1) Laboratory Tests Test 04/10/18 04:00 White Blood Count 8.6 x10^3/uL (4.0-11.0) Red Blood Count 4.12 x10^6/uL (4.30-5.70) Hemoglobin 12.4 g/dL (13.0-17.5) Hematocrit 37.7 % (39.0-53.0) Mean Corpuscular Volume 92 fL (79-100) Mean Corpuscular Hemoglobin 30 pg (25-35) Mean Corpuscular Hemoglobin Concent 33 g/dL (31-37) Red Cell Distribution Width 14.9 % (11.5-14.5) Platelet Count 171 x10^3/uL (140-400) Neutrophils (%) (Auto) 56 % (31-73) Lymphocytes (%) (Auto) 30 % (24-48) Monocytes (%) (Auto) 10 % (0-9) Eosinophils (%) (Auto) 3 % (0-3) Basophils (%) (Auto) 1 % (0-3) Neutrophils # (Auto) 4.8 x10^3uL (1.8-7.7) Lymphocytes # (Auto) 2.6 x10^3/uL (1.0-4.8) Monocytes # (Auto) 0.9 x10^3/uL (0.0-1.1) Eosinophils # (Auto) 0.2 x10^3/uL (0.0-0.7) Basophils # (Auto) 0.1 x10^3/uL (0.0-0.2) Sodium Level 142 mmol/L (136-145) Potassium Level 4.1 mmol/L (3.5-5.1) Chloride Level 110 mmol/L (98-107) Carbon Dioxide Level 20 mmol/L (21-32) Anion Gap 12 (6-14) Blood Urea Nitrogen 34 mg/dL (8-26) Creatinine 1.9 mg/dL (0.7-1.3) Estimated GFR (Cockcroft-Gault) 35.3 Glucose Level 91 mg/dL (70-99) Calcium Level 9.1 mg/dL (8.5-10.1) Medications Current Medications Aspirin (Children'S Aspirin) 324 mg 1X ONCE PO Last administered on 04/08/18at 17:11; Start 04/08/18 at 17:15; Stop 04/08/18 at 17:16; Status DC Nitroglycerin (Nitrostat) 0.4 mg PRN Q5MIN PRN SL CHEST PAIN; Start 04/08/18 at 17:15; Stop 04/08/18 at 23:32; Status DC Morphine Sulfate (Morphine Sulfate) 2 mg PRN Q1HR PRN IV SEVERE PAIN; Start at 17:15 Heparin Sodium (Porcine) (Heparin Sodium) 10,000 unit STK-MED ONCE .ROUTE ; Start 04/08/18 at 17:08; Stop 04/08/18 at 17:09; Status DC Sodium Chloride 500 ml @ 500 mls/hr 1X ONCE IV Last administered on at 17:15; Start 04/08/18 at 17:15; Stop 04/08/18 at 18:14; Status DC Heparin Sodium (Porcine) (Heparin Sodium) 4,000 unit 1X ONCE IV Last administered on 04/08/18at 17:18; Start 04/08/18 at 17:15; Stop 04/08/18 at 17:16 ; Status DC Heparin Sodium (Porcine) (Heparin Sodium) 4,000 unit 1X ONCE IV ; Start at 17:15; Stop 04/08/18 at 17:18; Status DC Iodixanol (Visipaque 320) 100 ml STK-MED ONCE .ROUTE ; Start 04/08/18 at 17:33; Stop 04/08/18 at 17:34; Status DC Fentanyl Citrate (Fentanyl 2ml Vial) 100 mcg STK-MED ONCE .ROUTE ; Start at 17:33; Stop 04/08/18 at 17:34; Status DC Midazolam HCl (Versed) 2 mg STK-MED ONCE .ROUTE ; Start 04/08/18 at 17:34; Stop 04/08/18 at 17:35; Status DC Heparin Sodium (Porcine) (Heparin Sodium) 10,000 unit STK-MED ONCE .ROUTE ; Start 04/08/18 at 17:34; Stop 04/08/18 at 17:35; Status DC Verapamil HCl (Verapamil) 5 mg STK-MED ONCE .ROUTE ; Start 04/08/18 at 17:34; Stop 04/08/18 at 17:35; Status DC Lidocaine HCl (Lidocaine 1% 20ml Vial) 20 ml STK-MED ONCE .ROUTE ; Start at 17:34; Stop 04/08/18 at 17:35; Status DC Heparin Sodium/ Sodium Chloride 1,500 ml @ As Directed STK-MED ONCE .ROUTE ; Start 04/08/18 at 17:34; Stop 04/08/18 at 17:35; Status DC Nitroglycerin (Nitroglycerin) 200 mcg STK-MED ONCE .ROUTE ; Start 04/08/18 at 17 :34; Stop 04/08/18 at 17:35; Status DC Tirofiban/Sodium Chloride 100 ml @ As Directed STK-MED ONCE IV ; Start at 17:58; Stop 04/08/18 at 17:59; Status DC Nitroglycerin (Nitroglycerin) 200 mcg 1X ONCE IART Last administered on 18:15; Start 04/08/18 at 18:15; Stop 04/08/18 at 18:16; Status DC Verapamil HCl (Verapamil) 2.5 mg 1X ONCE IART Last administered on 04/08/18at 18:15; Start 04/08/18 at 18:15; Stop 04/08/18 at 18:16; Status DC Heparin Sodium (Porcine) (Heparin Sodium) 2,500 unit 1X ONCE IART Last administered on 04/08/18at 18:15; Start 04/08/18 at 18:15; Stop 04/08/18 at 18:16 ; Status DC Heparin Sodium/ Sodium Chloride (HEPARIN for ARTERIAL LINE FLUSH) 1,000 unit 1X ONCE IART Last administered on 04/08/18 18:15; Start 04/08/18 at 18:15; Stop 04/08/18 at 18:16; Status DC Heparin Sodium/ Sodium Chloride (HEPARIN for ARTERIAL LINE FLUSH) 1,000 unit 1X ONCE IART Last administered on 04/08/18 18:15; Start 04/08/18 at 18:15; Stop 04/08/18 at 18:16; Status DC Midazolam HCl (Versed) 2 mg 1X ONCE IV Last administered on 04/08/18 18:15; Start 04/08/18 at 18:15; Stop 04/08/18 at 18:16; Status DC Fentanyl Citrate (Fentanyl 2ml Vial) 100 mcg 1X ONCE IV Last administered on 18:15; Start 04/08/18 at 18:15; Stop 04/08/18 at 18:16; Status DC Iodixanol (Visipaque 320) 100 ml 1X ONCE IART Last administered on 04/08/18 18:15; Start 04/08/18 at 18:15; Stop 04/08/18 at 18:16; Status DC Lidocaine HCl (Lidocaine 1% 20ml Vial) 20 ml 1X ONCE INJ Last administered on 04/08/18at 18:15; Start 04/08/18 at 18:15; Stop 04/08/18 at 18:16; Status DC Tirofiban/Sodium Chloride 100 ml @ 0 mls/hr CONT PRN IV PER PROTOCOL Last administered on 04/08/18at 18:23; Start 04/08/18 at 18:15; Stop 04/09/18 at 12:14 ; Status DC Info (CONTRAST GIVEN -- Rx MONITORING) 1 each PRN DAILY PRN MC SEE COMMENTS; Start 04/08/18 at 18:15; Stop 04/10/18 at 18:14 Atropine Sulfate (ATROPINE 0.5mg SYRINGE) 0.5 mg STK-MED ONCE .ROUTE ; Start at 18:16; Stop 04/08/18 at 18:17; Status DC Heparin Sodium (Porcine) (Heparin Sodium) 1,000 unit 1X ONCE IV Last administered on 04/08/18at 18:30; Start 04/08/18 at 18:30; Stop 04/08/18 at 18:31 ; Status DC Prasugrel (Effient) 10 mg STK-MED ONCE .ROUTE ; Start 04/08/18 at 18:31; Stop at 18:32; Status DC Prasugrel (Effient) 60 mg 1X ONCE PO Last administered on 04/08/18at 18:42; Start 04/08/18 at 18:45; Stop 04/08/18 at 18:46; Status DC Sodium Chloride (Normal Saline Flush 3ml) 3 ml QSHIFT PRN IV AFTER MEDS AND BLOOD DRAWS; Start 04/08/18 at 19:00; Stop 04/08/18 at 23:31; Status DC Ondansetron HCl (Zofran) 4 mg PRN Q4HRS PRN IV NAUSEA/VOMITING; Start 04/08/18 at 19:00 Zolpidem Tartrate (Ambien) 5 mg PRN QHS PRN PO INSOMNIA; Start 04/08/18 at 19: 00 Acetaminophen (Tylenol) 650 mg PRN Q4HRS PRN PO TEMP OVER 100.4F OR MILD PAIN; Start 04/08/18 at 19:00; Stop 04/08/18 at 23:31; Status DC Acetaminophen (Tylenol) 650 mg PRN Q4HRS PRN GT TEMP OVER 100.4F OR MILD PAIN; Start 04/08/18 at 19:00; Stop 04/08/18 at 23:31; Status DC Al Hydroxide/Mg Hydroxide (Mylanta Plus Xs) 30 ml PRN DAILY PRN PO HEARTBURN / GAS; Start 04/08/18 at 19:00 Clonidine HCl (Catapres) 0.1 mg PRN Q6HRS PRN PO SBP>160 OR DBP>90; Start 04/08 at 19:00 Sodium Monofluorophosphate (Fleet Adult) 133 ml PRN DAILY PRN MO CONSTIPATION; Start 04/08/18 at 19:00 Docusate Sodium (Colace) 100 mg PRN BID PRN PO CONSTIPATION; Start 04/08/18 at 19:00 Albuterol Sulfate (Ventolin Neb Soln) 2.5 mg PRN Q4HRS PRN NEB SHORTNESS OF BREATH; Start 04/08/18 at 19:00 Guaifenesin (Robitussin) 200 mg PRN Q4HRS PRN PO COUGH; Start 04/08/18 at 19:00 Lorazepam (Ativan) 0.5 mg PRN Q4HRS PRN PO ANXIETY / AGITATION; Start 04/08/18 at 19:00 Enoxaparin Sodium (Lovenox 40mg Syringe) 40 mg DAILY SQ Last administered on 04/10/18at 08:31; Start 04/09/18 at 09:00 Sodium Chloride (Normal Saline Flush) 3 ml QSHIFT PRN IV AFTER MEDS AND BLOOD DRAWS; Start 04/08/18 at 23:30 Aspirin (Ecotrin) 81 mg DAILYWBKFT PO Last administered on 04/10/18at 08:32; Start 04/09/18 at 08:00 Prasugrel (Effient) 10 mg DAILYWBKFT PO Last administered on 04/10/18at 08:31; Start 04/09/18 at 08:00 Atorvastatin Calcium (Lipitor) 40 mg QHS PO Last administered on 04/09/18at 19:39 ; Start 04/08/18 at 23:30 Acetaminophen (Tylenol) 650 mg PRN Q6HRS PRN PO MILD PAIN / TEMP; Start at 23:30 Fentanyl Citrate (Fentanyl 2ml Vial) 50 mcg PRN Q1HR PRN IV MODERATE OR SEVERE PAIN; Start 04/08/18 at 23:30 Nitroglycerin (Nitrostat) 0.4 mg PRN Q5MIN PRN SL CHEST PAIN; Start 04/08/18 at 23:30 Amiodarone HCl 150 mg/Dextrose 103 ml @ 600 mls/hr 1X PRN PRN IV FOR VENTRICULAR TACHYCARDIA; Start 04/08/18 at 23:30 Lidocaine HCl (Lidocaine HCl 2% Abboject) 100 mg 1X PRN PRN IV FOR VENTRICULAR TACHYCARDIA; Start 04/08/18 at 23:30 Atropine Sulfate (ATROPINE 0.5mg SYRINGE) 0.5 mg PRN 1X PRN IV BRADYCARDIA; Start 04/08/18 at 23:30 Active Scripts Active Reported NITROGLYCERIN SubLingual (Nitroglycerin) 0.4 Mg Tab.subl 1 Tab SL UD Simvastatin 40 Mg Tablet 1 Tab PO QHS Amlodipine Besylate 5 Mg Tablet 5 Mg PO DAILY Metoprolol Tartrate 50 Mg Tablet 1 Tab PO BID Nexium Capsule (Esomeprazole Magnesium) 20 Mg Capsule.dr 1 Cap PO DAILY Aspir 81 (Aspirin) 81 Mg Tablet.dr 1 Tab PO DAILY Yani Allergy (Fexofenadine Hcl) 180 Mg Tablet 1 Tab PO DAILY Vitals/I & O Vital Sign - Last 24 Hours 04/09/18 04/09/18 04/09/18 04/09/18 09:04 12:00 16:00 19:15 Temp 98.7 98.6 97.8 98.7 98.6 97.8 Pulse 74 69 78 Resp 21 B/P (MAP) 129/74 (92) 122/79 (93) 114/78 (90) Pulse Ox 97 97 96 99 O2 Delivery Room Air Room Air Room Air Room Air 04/09/18 04/09/18 04/10/18 04/10/18 19:53 23:22 03:00 07:15 Temp 98.0 98.7 98.0 98.7 Pulse 62 51 66 Resp 20 20 B/P (MAP) 120/74 (89) 122/74 (90) Pulse Ox 98 96 O2 Delivery Room Air Room Air Room Air 04/10/18 07:58 O2 Delivery Room Air Intake and Output 04/09/18 04/09/18 04/10/18 14:59 22:59 06:59 Intake Total 240 ml 560 ml Output Total 750 ml 250 ml 0 ml Balance -510 ml 310 ml 0 ml QIAN HSU III DO Apr 10, 2018 08:45
[2018-04-10 11:00] VITALS: BP 121/74
[2018-04-10] MEDS ORDERED: PRAS10TA9 PO (11:32)
--- NOTE | 2018-04-10 12:36 | PDOC ---
PROGRESS NOTES Subjective Subjective Patient seen and examined Objective Objective Vital Signs Date Time Temp Pulse Resp B/P (MAP) Pulse Ox O2 Delivery O2 Flow Rate FiO2 04/10/18 11:00 98.2 77 16 121/74 (90) 99 Room Air 98.2 04/08/18 19:30 2.0 Intake and Output 04/10/18 07:00 Intake Total 800 ml Output Total 1000 ml Balance -200 ml Intake Oral 800 ml Output Urine Total 1000 ml Physical Exam Abdomen: Normal bowel sounds Heart: Regular rate General: No acute distress Lungs: Clear to auscultation Assessment Assessment Problems Medical Problems: (1) STEMI (ST elevation myocardial infarction) Status: Acute 1. Inferior aborted STEMI: S/P PCI/RYANN to RCA. Well. Continue to antiplatelet medications. Restarting beta iris. 2. Hx of CAD: prior PTCA 3. Controlled HTN 4. CKD3-4 Comment Review of Relevant I have reviewed the following items salma (where applicable) has been applied. Labs Laboratory Tests Test 04/08/18 17:03 04/08/18 17:06 04/08/18 17:07 04/09/18 03:30 White Blood Count 12.3 x10^3/uL (4.0-11.0) Red Blood Count 4.34 x10^6/uL (4.30-5.70) Hemoglobin 12.9 g/dL (13.0-17.5) Hematocrit 39.9 % (39.0-53.0) Mean Corpuscular Volume 92 fL (79-100) Mean Corpuscular Hemoglobin 30 pg (25-35) Mean Corpuscular Hemoglobin Concent 32 g/dL (31-37) Red Cell Distribution Width 14.4 % (11.5-14.5) Platelet Count 192 x10^3/uL (140-400) Neutrophils (%) (Auto) 86 % (31-73) Lymphocytes (%) (Auto) 10 % (24-48) Monocytes (%) (Auto) 3 % (0-9) Eosinophils (%) (Auto) 0 % (0-3) Basophils (%) (Auto) 0 % (0-3) Neutrophils # (Auto) 10.6 x10^3uL (1.8-7.7) Lymphocytes # (Auto) 1.3 x10^3/uL (1.0-4.8) Monocytes # (Auto) 0.4 x10^3/uL (0.0-1.1) Eosinophils # (Auto) 0.0 x10^3/uL (0.0-0.7) Basophils # (Auto) 0.0 x10^3/uL (0.0-0.2) Segmented Neutrophils % 90 % (35-66) Lymphocytes % 9 % (24-48) Monocytes % 1 % (0-10) Platelet Estimate Adequate (ADEQUATE) Schistocytes Occ RBC Morphology Bizarre Forms Occ Prothrombin Time 14.5 SEC (11.7-14.0) Prothromb Time International Ratio 1.2 (0.8-1.1) Activated Partial Thromboplast Time 30 SEC (24-38) Sodium Level 142 mmol/L (136-145) 142 mmol/L (136-145) Potassium Level 4.2 mmol/L (3.5-5.1) 3.9 mmol/L (3.5-5.1) Chloride Level 106 mmol/L (98-107) 108 mmol/L (98-107) Carbon Dioxide Level 17 mmol/L (21-32) 19 mmol/L (21-32) Anion Gap 19 (6-14) 19 mmol/L (6-14) 15 (6-14) Blood Urea Nitrogen 39 mg/dL (8-26) 32 mg/dL (8-26) Creatinine 2.1 mg/dL (0.7-1.3) 1.8 mg/dL (0.7-1.3) Estimated GFR (Cockcroft-Gault) 31.5 37.6 Glucose Level 143 mg/dL (70-99) 144 mg/dL (70-99) 84 mg/dL (70-99) Calcium Level 9.7 mg/dL (8.5-10.1) 9.1 mg/dL (8.5-10.1) Total Bilirubin 0.4 mg/dL (0.2-1.0) Direct Bilirubin 0.1 mg/dL (0.0-0.2) Aspartate Amino Transf (AST/SGOT) 32 U/L (15-37) Alanine Aminotransferase (ALT/SGPT) 21 U/L (16-63) Alkaline Phosphatase 91 U/L (46-116) Troponin I Quantitative 5.895 ng/mL (0.000-0.055) 18.178 ng/mL (0.000-0.055) KL-Nba-G-Type Natriuretic Peptide 630 pg/mL (0-124) Total Protein 7.9 g/dL (6.4-8.2) Albumin 3.7 g/dL (3.4-5.0) Lipase 130 U/L (73-393) Bedside Troponin I 3.45 ng/ml (<0.08) Bedside Hemoglobin 13.6 g/dL (14-18) Bedside Hematocrit 40 % (37-52) Bedside Sodium 141 mmol/L (135-145) Bedside Potassium 4.1 mmol/L (3.5-5.0) Bedside Chloride 111 mmol/L (98-110) Bedside Total CO2 15 mmol/L (23-32) Bedside Blood Urea Nitrogen 34 mg/dL (8-26) Bedside Creatinine 2.0 mg/dL (0.5-1.4) Bedside Ionized Calcium (Chago) 1.25 mmol/L (1.13-1.32) Triglycerides Level 87 mg/dL (0-150) Cholesterol Level 110 mg/dL (0-200) LDL Cholesterol, Calculated 56 mg/dL (0-100) VLDL Cholesterol, Calculated 17 mg/dL (0-40) Non-HDL Cholesterol Calculated 73 mg/dL (0-129) HDL Cholesterol 37 mg/dL (40-60) Cholesterol/HDL Ratio 3.0 Test 04/10/18 04:00 04/10/18 10:05 White Blood Count 8.6 x10^3/uL (4.0-11.0) Red Blood Count 4.12 x10^6/uL (4.30-5.70) Hemoglobin 12.4 g/dL (13.0-17.5) Hematocrit 37.7 % (39.0-53.0) Mean Corpuscular Volume 92 fL (79-100) Mean Corpuscular Hemoglobin 30 pg (25-35) Mean Corpuscular Hemoglobin Concent 33 g/dL (31-37) Red Cell Distribution Width 14.9 % (11.5-14.5) Platelet Count 171 x10^3/uL (140-400) Neutrophils (%) (Auto) 56 % (31-73) Lymphocytes (%) (Auto) 30 % (24-48) Monocytes (%) (Auto) 10 % (0-9) Eosinophils (%) (Auto) 3 % (0-3) Basophils (%) (Auto) 1 % (0-3) Neutrophils # (Auto) 4.8 x10^3uL (1.8-7.7) Lymphocytes # (Auto) 2.6 x10^3/uL (1.0-4.8) Monocytes # (Auto) 0.9 x10^3/uL (0.0-1.1) Eosinophils # (Auto) 0.2 x10^3/uL (0.0-0.7) Basophils # (Auto) 0.1 x10^3/uL (0.0-0.2) Sodium Level 142 mmol/L (136-145) Potassium Level 4.1 mmol/L (3.5-5.1) Chloride Level 110 mmol/L (98-107) Carbon Dioxide Level 20 mmol/L (21-32) Anion Gap 12 (6-14) Blood Urea Nitrogen 34 mg/dL (8-26) Creatinine 1.9 mg/dL (0.7-1.3) Estimated GFR (Cockcroft-Gault) 35.3 Glucose Level 91 mg/dL (70-99) Calcium Level 9.1 mg/dL (8.5-10.1) Troponin I Quantitative 3.239 ng/mL (0.000-0.055) Laboratory Tests Test 04/10/18 04:00 04/10/18 10:05 White Blood Count 8.6 x10^3/uL (4.0-11.0) Red Blood Count 4.12 x10^6/uL (4.30-5.70) Hemoglobin 12.4 g/dL (13.0-17.5) Hematocrit 37.7 % (39.0-53.0) Mean Corpuscular Volume 92 fL (79-100) Mean Corpuscular Hemoglobin 30 pg (25-35) Mean Corpuscular Hemoglobin Concent 33 g/dL (31-37) Red Cell Distribution Width 14.9 % (11.5-14.5) Platelet Count 171 x10^3/uL (140-400) Neutrophils (%) (Auto) 56 % (31-73) Lymphocytes (%) (Auto) 30 % (24-48) Monocytes (%) (Auto) 10 % (0-9) Eosinophils (%) (Auto) 3 % (0-3) Basophils (%) (Auto) 1 % (0-3) Neutrophils # (Auto) 4.8 x10^3uL (1.8-7.7) Lymphocytes # (Auto) 2.6 x10^3/uL (1.0-4.8) Monocytes # (Auto) 0.9 x10^3/uL (0.0-1.1) Eosinophils # (Auto) 0.2 x10^3/uL (0.0-0.7) Basophils # (Auto) 0.1 x10^3/uL (0.0-0.2) Sodium Level 142 mmol/L (136-145) Potassium Level 4.1 mmol/L (3.5-5.1) Chloride Level 110 mmol/L (98-107) Carbon Dioxide Level 20 mmol/L (21-32) Anion Gap 12 (6-14) Blood Urea Nitrogen 34 mg/dL (8-26) Creatinine 1.9 mg/dL (0.7-1.3) Estimated GFR (Cockcroft-Gault) 35.3 Glucose Level 91 mg/dL (70-99) Calcium Level 9.1 mg/dL (8.5-10.1) Troponin I Quantitative 3.239 ng/mL (0.000-0.055) Medications Current Medications Aspirin (Children'S Aspirin) 324 mg 1X ONCE PO Last administered on 04/08/18at 17:11; Start 04/08/18 at 17:15; Stop 04/08/18 at 17:16; Status DC Nitroglycerin (Nitrostat) 0.4 mg PRN Q5MIN PRN SL CHEST PAIN; Start 04/08/18 at 17:15; Stop 04/08/18 at 23:32; Status DC Morphine Sulfate (Morphine Sulfate) 2 mg PRN Q1HR PRN IV SEVERE PAIN; Start at 17:15 Heparin Sodium (Porcine) (Heparin Sodium) 10,000 unit STK-MED ONCE .ROUTE ; Start 04/08/18 at 17:08; Stop 04/08/18 at 17:09; Status DC Sodium Chloride 500 ml @ 500 mls/hr 1X ONCE IV Last administered on at 17:15; Start 04/08/18 at 17:15; Stop 04/08/18 at 18:14; Status DC Heparin Sodium (Porcine) (Heparin Sodium) 4,000 unit 1X ONCE IV Last administered on 04/08/18at 17:18; Start 04/08/18 at 17:15; Stop 04/08/18 at 17:16 ; Status DC Heparin Sodium (Porcine) (Heparin Sodium) 4,000 unit 1X ONCE IV ; Start at 17:15; Stop 04/08/18 at 17:18; Status DC Iodixanol (Visipaque 320) 100 ml STK-MED ONCE .ROUTE ; Start 04/08/18 at 17:33; Stop 04/08/18 at 17:34; Status DC Fentanyl Citrate (Fentanyl 2ml Vial) 100 mcg STK-MED ONCE .ROUTE ; Start at 17:33; Stop 04/08/18 at 17:34; Status DC Midazolam HCl (Versed) 2 mg STK-MED ONCE .ROUTE ; Start 04/08/18 at 17:34; Stop 04/08/18 at 17:35; Status DC Heparin Sodium (Porcine) (Heparin Sodium) 10,000 unit STK-MED ONCE .ROUTE ; Start 04/08/18 at 17:34; Stop 04/08/18 at 17:35; Status DC Verapamil HCl (Verapamil) 5 mg STK-MED ONCE .ROUTE ; Start 04/08/18 at 17:34; Stop 04/08/18 at 17:35; Status DC Lidocaine HCl (Lidocaine 1% 20ml Vial) 20 ml STK-MED ONCE .ROUTE ; Start at 17:34; Stop 04/08/18 at 17:35; Status DC Heparin Sodium/ Sodium Chloride 1,500 ml @ As Directed STK-MED ONCE .ROUTE ; Start 04/08/18 at 17:34; Stop 04/08/18 at 17:35; Status DC Nitroglycerin (Nitroglycerin) 200 mcg STK-MED ONCE .ROUTE ; Start 04/08/18 at 17 :34; Stop 04/08/18 at 17:35; Status DC Tirofiban/Sodium Chloride 100 ml @ As Directed STK-MED ONCE IV ; Start at 17:58; Stop 04/08/18 at 17:59; Status DC Nitroglycerin (Nitroglycerin) 200 mcg 1X ONCE IART Last administered on 18:15; Start 04/08/18 at 18:15; Stop 04/08/18 at 18:16; Status DC Verapamil HCl (Verapamil) 2.5 mg 1X ONCE IART Last administered on 04/08/18 18:15; Start 04/08/18 at 18:15; Stop 04/08/18 at 18:16; Status DC Heparin Sodium (Porcine) (Heparin Sodium) 2,500 unit 1X ONCE IART Last administered on 04/08/18 18:15; Start 04/08/18 at 18:15; Stop 04/08/18 at 18:16 ; Status DC Heparin Sodium/ Sodium Chloride (HEPARIN for ARTERIAL LINE FLUSH) 1,000 unit 1X ONCE IART Last administered on 04/08/18 18:15; Start 04/08/18 at 18:15; Stop 04/08/18 at 18:16; Status DC Heparin Sodium/ Sodium Chloride (HEPARIN for ARTERIAL LINE FLUSH) 1,000 unit 1X ONCE IART Last administered on 04/08/18 18:15; Start 04/08/18 at 18:15; Stop 04/08/18 at 18:16; Status DC Midazolam HCl (Versed) 2 mg 1X ONCE IV Last administered on 04/08/18 18:15; Start 04/08/18 at 18:15; Stop 04/08/18 at 18:16; Status DC Fentanyl Citrate (Fentanyl 2ml Vial) 100 mcg 1X ONCE IV Last administered on 18:15; Start 04/08/18 at 18:15; Stop 04/08/18 at 18:16; Status DC Iodixanol (Visipaque 320) 100 ml 1X ONCE IART Last administered on 04/08/18 18:15; Start 04/08/18 at 18:15; Stop 04/08/18 at 18:16; Status DC Lidocaine HCl (Lidocaine 1% 20ml Vial) 20 ml 1X ONCE INJ Last administered on 04/08/18 18:15; Start 04/08/18 at 18:15; Stop 04/08/18 at 18:16; Status DC Tirofiban/Sodium Chloride 100 ml @ 0 mls/hr CONT PRN IV PER PROTOCOL Last administered on 04/08/18 18:23; Start 04/08/18 at 18:15; Stop 04/09/18 at 12:14 ; Status DC Info (CONTRAST GIVEN -- Rx MONITORING) 1 each PRN DAILY PRN MC SEE COMMENTS; Start 04/08/18 at 18:15; Stop 04/10/18 at 18:14 Atropine Sulfate (ATROPINE 0.5mg SYRINGE) 0.5 mg STK-MED ONCE .ROUTE ; Start at 18:16; Stop 04/08/18 at 18:17; Status DC Heparin Sodium (Porcine) (Heparin Sodium) 1,000 unit 1X ONCE IV Last administered on 04/08/18at 18:30; Start 04/08/18 at 18:30; Stop 04/08/18 at 18:31 ; Status DC Prasugrel (Effient) 10 mg STK-MED ONCE .ROUTE ; Start 04/08/18 at 18:31; Stop at 18:32; Status DC Prasugrel (Effient) 60 mg 1X ONCE PO Last administered on 04/08/18at 18:42; Start 04/08/18 at 18:45; Stop 04/08/18 at 18:46; Status DC Sodium Chloride (Normal Saline Flush 3ml) 3 ml QSHIFT PRN IV AFTER MEDS AND BLOOD DRAWS; Start 04/08/18 at 19:00; Stop 04/08/18 at 23:31; Status DC Ondansetron HCl (Zofran) 4 mg PRN Q4HRS PRN IV NAUSEA/VOMITING; Start 04/08/18 at 19:00 Zolpidem Tartrate (Ambien) 5 mg PRN QHS PRN PO INSOMNIA; Start 04/08/18 at 19: 00 Acetaminophen (Tylenol) 650 mg PRN Q4HRS PRN PO TEMP OVER 100.4F OR MILD PAIN; Start 04/08/18 at 19:00; Stop 04/08/18 at 23:31; Status DC Acetaminophen (Tylenol) 650 mg PRN Q4HRS PRN GT TEMP OVER 100.4F OR MILD PAIN; Start 04/08/18 at 19:00; Stop 04/08/18 at 23:31; Status DC Al Hydroxide/Mg Hydroxide (Mylanta Plus Xs) 30 ml PRN DAILY PRN PO HEARTBURN / GAS; Start 04/08/18 at 19:00 Clonidine HCl (Catapres) 0.1 mg PRN Q6HRS PRN PO SBP>160 OR DBP>90; Start 04/08 at 19:00 Sodium Monofluorophosphate (Fleet Adult) 133 ml PRN DAILY PRN [place] CONSTIPATION; Start 04/08/18 at 19:00 Docusate Sodium (Colace) 100 mg PRN BID PRN PO CONSTIPATION; Start 04/08/18 at 19:00 Albuterol Sulfate (Ventolin Neb Soln) 2.5 mg PRN Q4HRS PRN NEB SHORTNESS OF BREATH; Start 04/08/18 at 19:00 Guaifenesin (Robitussin) 200 mg PRN Q4HRS PRN PO COUGH; Start 04/08/18 at 19:00 Lorazepam (Ativan) 0.5 mg PRN Q4HRS PRN PO ANXIETY / AGITATION; Start 04/08/18 at 19:00 Enoxaparin Sodium (Lovenox 40mg Syringe) 40 mg DAILY SQ Last administered on 04/10/18at 08:31; Start 04/09/18 at 09:00 Sodium Chloride (Normal Saline Flush) 3 ml QSHIFT PRN IV AFTER MEDS AND BLOOD DRAWS; Start 04/08/18 at 23:30 Aspirin (Ecotrin) 81 mg DAILYWBKFT PO Last administered on 04/10/18at 08:32; Start 04/09/18 at 08:00 Prasugrel (Effient) 10 mg DAILYWBKFT PO Last administered on 04/10/18at 08:31; Start 04/09/18 at 08:00 Atorvastatin Calcium (Lipitor) 40 mg QHS PO Last administered on 04/09/18at 19:39 ; Start 04/08/18 at 23:30 Acetaminophen (Tylenol) 650 mg PRN Q6HRS PRN PO MILD PAIN / TEMP; Start at 23:30 Fentanyl Citrate (Fentanyl 2ml Vial) 50 mcg PRN Q1HR PRN IV MODERATE OR SEVERE PAIN; Start 04/08/18 at 23:30 Nitroglycerin (Nitrostat) 0.4 mg PRN Q5MIN PRN SL CHEST PAIN; Start 04/08/18 at 23:30 Amiodarone HCl 150 mg/Dextrose 103 ml @ 600 mls/hr 1X PRN PRN IV FOR VENTRICULAR TACHYCARDIA; Start 04/08/18 at 23:30 Lidocaine HCl (Lidocaine HCl 2% Abboject) 100 mg 1X PRN PRN IV FOR VENTRICULAR TACHYCARDIA; Start 04/08/18 at 23:30 Atropine Sulfate (ATROPINE 0.5mg SYRINGE) 0.5 mg PRN 1X PRN IV BRADYCARDIA; Start 04/08/18 at 23:30 Active Scripts Active Reported Effient (Prasugrel Hcl) 10 Mg Tablet 1 Tab PO DAILY NITROGLYCERIN SubLingual (Nitroglycerin) 0.4 Mg Tab.subl 1 Tab SL UD Simvastatin 40 Mg Tablet 1 Tab PO QHS Metoprolol Tartrate 50 Mg Tablet 1 Tab PO BID Nexium Capsule (Esomeprazole Magnesium) 20 Mg Capsule.dr 1 Cap PO DAILY Aspir 81 (Aspirin) 81 Mg Tablet.dr 1 Tab PO DAILY Yani Allergy (Fexofenadine Hcl) 180 Mg Tablet 1 Tab PO DAILY Vitals/I & O Vital Sign - Last 24 Hours 04/09/18 04/09/18 04/09/18 04/09/18 16:00 19:15 19:53 23:22 Temp 98.6 97.8 98.0 98.6 97.8 98.0 Pulse 69 78 62 Resp 21 20 B/P (MAP) 122/79 (93) 114/78 (90) 120/74 (89) Pulse Ox 96 99 98 O2 Delivery Room Air Room Air Room Air Room Air 04/10/18 04/10/18 04/10/18 04/10/18 03:00 07:15 07:58 11:00 Temp 98.7 98.2 98.7 98.2 Pulse 51 66 77 Resp 20 16 B/P (MAP) 122/74 (90) 121/74 (90) Pulse Ox 96 99 O2 Delivery Room Air Room Air Room Air Intake and Output 04/09/18 04/09/18 04/10/18 15:00 23:00 07:00 Intake Total 240 ml 560 ml Output Total 750 ml 250 ml 0 ml Balance -510 ml 310 ml 0 ml MATEUS WREN MD Apr 10, 2018 12:36
--- NOTE | 2018-04-10 14:08 | NUR ---
Pt discharged to home, site to right wrist cath site with dressing removed, area without oozing,redness, or warmth. IV to left AC with pressure dressing due to bleeding, pt to keep dressing on until tomorrow. All discharge instructions, education, stent card, precautions given to pt and reviewed with understanding. PT denies further needs, script for Effient given to dtr yesterday and filled. Pt assisted to vehicle with staff and wheelchair.
== END 2018-04-10 14:13 | disposition home or self-care (01) | DRG 246 ==
LOC: ER 16:52 → 1 WEST ICU 17:22 → 2 NORTH 19:30
PROVIDERS: ADMIT Family Medicine; ATTEND Family Medicine
PROC: 027034Z Dilation of Coronary Artery, One Artery with Drug-eluting Intraluminal Device, Percutaneous Approach (ICD-10-PCS; principal; 2018-04-08)
PROC: 4A023N7 Measurement of Cardiac Sampling and Pressure, Left Heart, Percutaneous Approach (ICD-10-PCS; 2018-04-08)
PROC: B2111ZZ Fluoroscopy of Multiple Coronary Arteries using Low Osmolar Contrast (ICD-10-PCS; 2018-04-08)
PROC: B240ZZ3 Ultrasonography of Single Coronary Artery, Intravascular (ICD-10-PCS; 2018-04-08)
PROC: 3E073PZ Introduction of Platelet Inhibitor into Coronary Artery, Percutaneous Approach (ICD-10-PCS; 2018-04-08)
DX: I21.19 ST elevation (STEMI) myocardial infarction involving other coronary artery of inferior wall (principal); N17.0 Acute kidney failure with tubular necrosis; E78.5 Hyperlipidemia, unspecified; K59.00 Constipation, unspecified; F41.9 Anxiety disorder, unspecified; I12.9 Hypertensive chronic kidney disease with stage 1 through stage 4 chronic kidney disease, or unspecified chronic kidney disease; I25.110 Atherosclerotic heart disease of native coronary artery with unstable angina pectoris; Z87.891 Personal history of nicotine dependence; Z79.899 Other long term (current) drug therapy; Z90.49 Acquired absence of other specified parts of digestive tract; Z98.61 Coronary angioplasty status; N18.3 Chronic kidney disease, stage 3 (moderate)
CPT/HCPCS: 36415; 37252; 71045; 80047; 80048; 80061; 80076; 83690; 83880; 84484; 85007; 85025; 85610; 85730; 92941; 93005; 93306; 93458; 96361; 96374; 99152; 99153; C1725; C1753; C1769; C1887; C1892; J1644; J1650; J2250; J3010; J3490; J7040; Q9967; 99285-25; J3246

== ENCOUNTER → 2019-04-29 | Outpatient (CLI) | payer MEDICARE, OTHER ==
[2019-01-18 11:00] VITALS: BP 127/82
[~2019-04-29] MED LIST changes: +ACET500T68 PO; +PRAS10TA9 PO; +ROSU40TA22 PO; +SIMV40TA18 PO; -SIMV40TA3 PO
--- NOTE | 2019-04-29 13:03 | CARD ---
MR#: [id number] Date of Study: 04/29/2019 Ordering Physician: JOAQUIM JONES, Referring Physician: JOAQUIM JONES, Tech: Gisel Ward [facility] APPROVED REPORT EXAM: Two-dimensional and M-mode echocardiogram with Doppler and color Doppler. Other Information Quality : Good INDICATION Congestive Heart Failure 2D DIMENSIONS RVDd2.6 (2.9-3.5cm)Left Atrium(2D)3.0 (1.6-4.0cm) IVSd1.0 (0.7-1.1cm)Aortic Root(2D)3.2 (2.0-3.7cm) LVDd4.7 (3.9-5.9cm)LVOT Diameter2.0 (1.8-2.4cm) PWd0.8 (0.7-1.1cm)LVDs2.8 (2.5-4.0cm) FS (%) 30.0 %SV72.2 ml LVEF(%)60.0 (>50%) Aortic Valve AoV Peak Rogelio.129.6cm/sAoV VTI26.3cm AO Peak GR.6.7mmHgLVOT Peak Rogelio.108.8cm/s LVOT VTI 23.97cmAO Mean GR.4mmHg WILFRED (VMAX)2.21fs6EZE (VTI)2.78cm2 AI P 1/2 [id number] Mitral Valve MV E Egzsmroh51.8cm/sMV DECEL [id number] MV A Ovuttifp41.4cm/sMV [id number] E/A Ratio0.8MVA (PHT)2.41cm2 TDI E/Lateral E'6.2E/Medial E'16.6 Tricuspid Valve TR P. Athyvccg058za/sRAP [id number] TR Peak Gr.08knCeGHXR06spLv Pulmonary Vein S1 Vayijgwa74.2cm/sD2 Xcrlkfzd90.9cm/s LEFT VENTRICLE The left ventricle is normal size. There is normal left ventricular wall thickness. The left ventricu lar systolic function is normal and the ejection fraction is within normal range. The Ejection Fracti on is 60-65%. There is normal LV segmental wall motion. Transmitral Doppler flow pattern is Grade I-a bnormal relaxation pattern. RIGHT VENTRICLE The right ventricle is normal size. The right ventricular systolic function is normal. ATRIA The left atrium size is normal. The right atrium size is normal. The interatrial septum is intact wit h no evidence for an atrial septal defect or patent foramen ovale as noted on 2-D or Doppler imaging. AORTIC VALVE The aortic valve is calcified but opens well. Doppler and Color Flow revealed mild to moderate aortic regurgitation. There is no significant aortic valvular stenosis. MITRAL VALVE The mitral valve is calcified but opens well. Mitral annular calcification is mild. There is no evide nce of mitral valve prolapse. There is no mitral valve stenosis. Doppler and Color-flow revealed trac e to mild mitral regurgitation. TRICUSPID VALVE The tricuspid valve is normal in structure and function. Doppler and Color Flow revealed trace tricus pid regurgitation. The PA pressure was estimated at 31 mmHg. There is no tricuspid valve stenosis. PULMONIC VALVE Doppler and Color Flow revealed mild pulmonic valvular regurgitation. There is no pulmonic valvular s tenosis. GREAT VESSELS The aortic root is normal in size. The ascending aorta is mildly dilated at 3.6 cm. The IVC is normal in size and collapses >50% with inspiration. PERICARDIAL EFFUSION There is no evidence of significant pericardial effusion. Critical Notification Critical Value: No <Conclusion> The left ventricular systolic function is normal and the ejection fraction is within normal range. Th e Ejection Fraction is 60-65%. There is normal LV segmental wall motion. Doppler and Color Flow revealed mild to moderate aortic regurgitation. The ascending aorta is mildly dilated at 3.6 cm. Signed by : Joaquim Jones, Electronically Approved : 04/29/2019 13:03:07
== END | disposition home or self-care (01) ==
LOC: ECHO 10:30
PROVIDERS: ATTEND Internal Medicine Cardiovascular Disease
DX: I08.8 Other rheumatic multiple valve diseases (principal); I77.810 Thoracic aortic ectasia; I25.10 Atherosclerotic heart disease of native coronary artery without angina pectoris; I50.9 Heart failure, unspecified
CPT/HCPCS: 93306

== ENCOUNTER → 2020-08-14 | Outpatient (CLI) | payer MEDICARE, OTHER ==
[2019-01-18 11:00] VITALS: BP 127/82
[~2020-08-14] MED LIST changes: +AMLO-186 PO; -AMLO5TAB10 PO
--- NOTE | 2020-08-14 18:40 | CARD ---
MR#: [id number] Date of Study: 08/14/2020 Ordering Physician: JOAQUIM JONES, Referring Physician: JOAQUIM JONES, Tech: Linden Harrison [facility] APPROVED REPORT EXAM: Two-dimensional and M-mode echocardiogram with Doppler and color Doppler. Other Information Quality : AverageHR: 55bpm Rhythm : NSR INDICATION Cardiac Disease: CAD RISK FACTORS Hypertension Hyperlipidemia Family History Smoking 2D DIMENSIONS Left Atrium(2D)4.1 (1.6-4.0cm)IVSd1.3 (0.7-1.1cm) Aortic Root(2D)3.6 (2.0-3.7cm)LVDd4.5 (3.9-5.9cm) LVOT Diameter2.3 (1.8-2.4cm)PWd1.2 (0.7-1.1cm) LVDs2.0 (2.5-4.0cm)FS (%) 55.5 % SV81.5 mlLVEF(%)86.2 (>50%) Aortic Valve AoV Peak Rogelio.154.3cm/sAoV VTI34.6cm AO Peak GR.9.5mmHgLVOT Peak Rogelio.120.7cm/s AO Mean GR.5mmHgAVA (VMAX)3.38cm2 AI P 1/2 [id number] Mitral Valve MV E Cptcgewx52.7cm/sMV E Peak Gr.3mmHg MV DECEL [id number] A Dgucgbjt75.5cm/s MV E Mean Gr.1mmHgE/A Ratio0.7 Pulmonary Valve PV Peak Jkrjylxf509.5cm/s Tricuspid Valve TR P. Apoiwpor360zy/sTR Peak Gr.30mmHg Pulmonary Vein S1 Hlimtajq76.3cm/sD2 Hkhavnxx91.9cm/s LEFT VENTRICLE The left ventricle is normal size. There is mild concentric left ventricular hypertrophy. The left ve ntricular systolic function is normal and the ejection fraction is within normal range. EF 55% There is normal LV segmental wall motion. Tissue Doppler imaging reveals mild left ventricular diastolic dy sfunction. No left ventricle thrombus noted on this study. There is no ventricular septal defect visu alized. There is no left ventricular aneurysm. There is no mass noted in the left ventricle. RIGHT VENTRICLE The right ventricle is normal size. There is normal right ventricular wall thickness. The right ventr icular systolic function is normal. ATRIA The left atrium is moderately dilated. The right atrium size is normal. The interatrial septum is int act with no evidence for an atrial septal defect or patent foramen ovale as noted on 2-D or Doppler i maging. AORTIC VALVE The aortic valve is mildly thickened but opens well. Doppler and Color Flow revealed trace to mild ao rtic regurgitation. There is no significant aortic valvular stenosis. There is no aortic valvular veg etation. MITRAL VALVE The mitral valve is normal in structure and function. There is no evidence of mitral valve prolapse. There is no mitral valve stenosis. Doppler and Color-flow revealed mild mitral regurgitation. TRICUSPID VALVE The tricuspid valve is normal in structure and function. Doppler and Color Flow revealed mild tricusp id regurgitation. There is no tricuspid valve prolapse or vegetation. There is no tricuspid valve cesar nosis. PULMONIC VALVE Moderate pulmonic regurgitation There is no pulmonic valvular stenosis. GREAT VESSELS The aortic root is normal in size. The ascending aorta is normal in size. The IVC is normal in size a nd collapses >50% with inspiration. PERICARDIAL EFFUSION There is no pleural effusion. There is no evidence of significant pericardial effusion. Critical Notification Critical Value: No <Conclusion> The left ventricular systolic function is normal and the ejection fraction is within normal range. EF 55% There is normal LV segmental wall motion. Moderate pulmonic regurgitation Signed by : Joaquim Jones, Electronically Approved : 08/14/2020 18:40:29
== END ==
LOC: ECHO 11:24
PROVIDERS: ATTEND Internal Medicine Cardiovascular Disease
DX: I08.8 Other rheumatic multiple valve diseases (principal); I25.10 Atherosclerotic heart disease of native coronary artery without angina pectoris
CPT/HCPCS: 93306